=== PATIENT | female | born 1960 | race Caucasian/White ===

== ENCOUNTER 2017-07-18 15:56 | Outpatient (RCR) | payer BC, SELFPAY | END 2017-08-02 23:59 | LOC: NS 15:56 | PROVIDERS: Family Provider Family Medicine; PCP Internal Medicine; Visit Provider Internal Medicine | DX: E11.9 Type 2 diabetes mellitus without complications (principal); E66.9 Obesity, unspecified; Z68.36 Body mass index [BMI] 36.0-36.9, adult; Z71.3 Dietary counseling and surveillance | CPT/HCPCS: 97803 ==

== ENCOUNTER 2017-08-16 07:39 | Day surgery (SDC) | payer BC, SELFPAY ==
--- NOTE | 2017-08-16 | COLBX_PTH ---
PATIENT: ROSIO ELDRIDGE LOC: [facility] U#:[id number] AGE/SX: 57/F ROOM: RE08/16/[address]: Dr. Pennie Duarte MD : 1960 BED: DIS: 08/16/2017 SPEC #: [id number] RECD: 08/16/17 13:41 STATUS: MADIE ANT #: [id number] CHRISTAL: 08/16/17 00:[address]: Pennie Duarte DEPT: SURGICAL PATHOLOGY RECD BY: Vance Yanez ENTERED: 08/16/17 13:41 SP TYPE: COLON BX OTHR DR: MD Dr. Dimitry Roque MD Tissues: A - Cecum, NOS B - Rectum, NOS Procedures: Surgery Specimen Level IV HEADER OPERATION: Colonoscopy with biopsy PRE-OP DIAGNOSIS: Screening, history cecum polyp TISSUE SUBMITTED: A ? Cecum polyp biopsy, B ? Rectal polyp biopsy MICROSCOPIC DIAGNOSIS A. Cecum polyp, biopsy: Fragments of colonic mucosa, no pathologic diagnosis. B. Rectal polyp, biopsy: Fragments of tubular adenoma. SJ:maci 08/17/17 MICROSCOPIC DESCRIPTION Slides are reviewed. GROSS DESCRIPTION A - Received in fixative is one container labeled with the patient's name and designated cecal polyp biopsy. The specimen consists of two irregular fragments of light river soft tissue that in aggregate measure 0.5 x 0.3 x 0.1 cm. The specimen is totally submitted in one cassette. B - Received in fixative is one container labeled with the patient's name and designated rectal polyp biopsy. The specimen consists of multiple irregular fragments of light river soft tissue that in aggregate measure 1 x 0.6 x 0.2 cm. The specimen is totally submitted in one cassette. / AM:maci 08/16/17 TC:1 [facility]: [id number] x2
[2017-08-16 08:06] VITALS: BP 125/64; PULSE 75; RESP 16; TEMP 36.6; O2SAT 97; BMI 35.1
[2017-08-16 08:36] LABS: Bedside Glucose 183 mg/dL (70-110)
[2017-08-16 09:35] VITALS: BP 125/64; BP 93/45; PULSE 72; RESP 16; TEMP 36.3; O2SAT 96
[2017-08-16 09:40] VITALS: BP 112/49; BP 125/64; PULSE 75; RESP 16; O2SAT 97
--- NOTE | 2017-08-16 09:44 | PCM.OPRPT ---
Report of Operation Date of Procedure: 08/16/17 Pre-Operative Diagnosis: Screening for colon cancer, history of polyps Post-Operative Diagnosis: Cecal polyp, rectal polyp, moderate diverticulosis throughout her colon Surgery/Procedure Performed:: Colonoscopy with biopsy Type of Anesthesia:: MAC Anesthesiologist: Kyle Schmidt Specimen's removed: 1. Cecal polyp, 2. Rectal polyp Estimated Blood Loss (mL): Minimal Description of Procedure: Procedure: Colonoscopy After reviewing the risks benefits, the patient was deemed in satisfactory condition to undergo procedure. After obtaining informed consent, the scope was passed under direct visualization. Throughout the procedure, the patient's blood pressure pulse and position saturations were monitored continuously anesthesia. The colonoscope was introduced through the anus and advanced to the cecum, identified by the appendiceal orifice, IC valve and transillumination. The colonoscopy was performed without difficulty. The patient tolerated procedure well. Quality of bowel prep was good. Findings: The perianal and digital rectal exam were normal. Small polyps were removed with the cold forceps biopsy in the cecum as well as in the rectum and sent to histology. There was moderate diverticulosis throughout the colon. Otherwise the colon (entire examined portion) appeared normal. Retroflexed view of the distal rectum and anal verge showed a rectal polyp which was removed with cold forceps biopsies. Impression: 1. Cecal and rectal polyp. Biopsied 2. Diverticulosis-moderate- throughout her colon 3. The distal rectal and anal verge were normal on retroflexed view. Recommendations: High-fiber diet await Biopsies Repeat colonoscopy in 3-5 years for screening purposes pending on biopsies - Complications none
[2017-08-16 09:45] VITALS: BP 110/52; BP 125/64; PULSE 72; RESP 16; O2SAT 97
[2017-08-16 09:50] VITALS: BP 119/58; BP 125/64; PULSE 70; RESP 16; TEMP 36.1; O2SAT 99
[2017-08-16 10:11] VITALS: BP 125/64
== END 2017-08-16 10:12 | disposition home or self-care (01) ==
LOC: EN 07:40 → AC 07:41
PROVIDERS: Family Provider Family Medicine; PCP Internal Medicine; Visit Provider Surgery
PROC: 0DJD8ZZ Inspection of Lower Intestinal Tract, Via Natural or Artificial Opening Endoscopic (ICD-10-PCS; CPT 45378; principal; 2017-08-16 08:55)
DX: Z12.11 Encounter for screening for malignant neoplasm of colon (principal); K63.5 Polyp of colon; D12.8 Benign neoplasm of rectum; K57.30 Diverticulosis of large intestine without perforation or abscess without bleeding; E11.9 Type 2 diabetes mellitus without complications; G50.0 Trigeminal neuralgia; E78.00 Pure hypercholesterolemia, unspecified; K21.9 Gastro-esophageal reflux disease without esophagitis; I10 Essential (primary) hypertension; Z78.0 Asymptomatic menopausal state; Z86.010 Personal history of colon polyps; Z90.49 Acquired absence of other specified parts of digestive tract; Z87.891 Personal history of nicotine dependence; Z79.84 Long term (current) use of oral hypoglycemic drugs; Z79.899 Other long term (current) drug therapy
CPT/HCPCS: 45380; 82962; 88305; J7120

== ENCOUNTER 2017-08-21 15:30 | Outpatient (RCR) | payer BC, SELFPAY ==
[2017-07-27 14:04] VITALS: BP 117/77; BMI 35.2
== END 2017-08-30 23:59 ==
LOC: NS 15:30
PROVIDERS: Family Provider Family Medicine; PCP Internal Medicine; Visit Provider Internal Medicine
DX: E11.9 Type 2 diabetes mellitus without complications (principal); E66.9 Obesity, unspecified; Z68.36 Body mass index [BMI] 36.0-36.9, adult; Z71.3 Dietary counseling and surveillance
CPT/HCPCS: 97803

== ENCOUNTER → 2018-02-12 09:42 | Outpatient (CLI) | payer BC, SELFPAY ==
[2018-02-12 11:27] LABS: Hemoglobin A1c 9.3 % (4.2-6.3)
[2018-02-12 11:37] LABS: Microalbumin,Random Urine 29.3 mg/L (NO RANGE EST.); Microalbumin:Creatinine Ratio 18.7 mg/g CRE (<30 mg/g CRE)
[2018-02-12 11:51] LABS: ALB/GLOB Ratio 1.1 RATIO (0.9-2.4); AST(SGOT) 46 U/L (15-37); Alanine Aminotransfer ALT/SGPT 78 U/L (13-56); Albumin, Serum 3.6 g/dL (3.2-5.0); Alkaline Phosphatase 131 U/L (45-117); Anion Gap 14 (5-15); BUN 13 mg/dL (7-18); BUN/Creat Ratio 19.3 RATIO (10-20); Chloride 102 mmol/L (98-107); Cholesterol 133 mg/dL (200); Creatinine, Serum 0.68 mg/dL (0.55-1.02); EST Glomerular Filtration Rate 95 mL/min (>60); Est Glom Filt Rate - Afr Amer 115 mL/min (>60); Globulin 3.4 g/dL (2.2-4.2); Glucose 191 mg/dL (74-106); High Density Lipoprotein 44 mg/dL; Potassium 4.3 mmol/L (3.5-5.1); Sodium Level 139 mmol/L (136-145); Triglycerides 174 mg/dL; Very Low Density Lipoprotein 35 mg/dL (5-40)
== END ==
PROVIDERS: Nurse Practitioner; Family Provider Internal Medicine; PCP Internal Medicine; Visit Provider Obstetrics & Gynecology
DX: E11.9 Type 2 diabetes mellitus without complications (principal); E78.5 Hyperlipidemia, unspecified; Z12.31 Encounter for screening mammogram for malignant neoplasm of breast
CPT/HCPCS: 36415; 77063; 77067; 80053; 80061; 82043; 82570; 83036

== ENCOUNTER 2018-03-21 13:30 | Outpatient (RCR) | payer BC, SELFPAY ==
--- NOTE | 2018-03-21 13:55 | HP.PTDCSUM ---
HP - PT D/C Summary It has been my pleasure to treat ROSIO ELDRIDGE under orders from Sharda Anderson MD, for the diagnosis of vertigo for a total of 2 visit(s). Discharge Date: 03/21/18 Please see the following information for a summary of their discharge status. - Subjective Subjective: No dizziness at all since last time, Pt reports that she almost cancelled. She can roll to both sides without dizziness. Pt is feeling a sense of off balance. - Overall Improvement % Improvement: 100 - Objective Objective/Function: - B hallpike tests. FGA . horizontal and vertical pursuits and saccades (tracked normally and no dizziness) - Goals Goal 1:: I HEP Goal Progress: Goal Met Goal 2:: Help dizziness by 50% Goal Progress: Goal Met Goal 3:: Aboolish dizziness when roll to the L side Goal Progress: Goal Met - Plan Plan: DC PT at this time. Pt will start Dias -DaROFF EXERCIES IF HER SYMPTOMS COME BACK. SHE WILL ALSO START AT THE KITCHEN COUNTER HEEL AND TOE RAISES - D/C Information Discharge Comments: DC PT If there are questions or concerns regarding this patient's physical therapy, please feel free to call me at [phone]. Thank you for the referral of this patient. Sincerely, Laura Cohen
--- NOTE | 2018-03-21 18:22 | HP.PTEVAL ---
Patient's Visit Information ROSIO ELDRIDGE is a 57 year old F referred to Physical Therapy by Sharda Anderson MD with a diagnosis of vertigo. Date of Evaluation: 03/13/18 Physical Therapist: Laura Cohen - Visit Plan Duration: 4 Weeks Plan: DC PT at this time. Pt will start Dias -DaROFF EXERCIES IF HER SYMPTOMS COME BACK. SHE WILL ALSO START AT THE KITCHEN COUNTER HEEL AND TOE RAISES - Subjective Subjective: Pt was diagnosed with vertigo 8 years ago. Last 2-3 months when the pt goes to lay down she gets dizzy especially when lay on the L side and does not last long. Pt was diagnosed with vertigo years ago. Pt has a new boss and does not have an excuse...cause she gets dizzy when up on the stool. wrote her an excuse and asked her if she will go to PT. Standing up quick or over to the side ( mainly L) gets dizzy, bending over. When she rolls over on the L side she feels that she is spinning. There are times that she does not feel good during the day and it is almost like a motion sickness. Her vertigo has never got to the point of vomiting etc. She has done some manuveurs at home and have helped some but the rolling to the L is something new. She has lived with the vertigo but this rolling to the L seems worse. Pt has fallen but due to leg cramps. Pt also has trigeminal neuralgia as well. Pt works in an office with computer junior database administrator. Pt does not have good balance. - Objective -Hallpike to B ( at first pt felt slight dizziness getting into hallpike position B but subsided without nystagmus or any increase in dizziness). Roll test- + B for nystagmus that did not rest until out of position. - Balance Scores Functional Gait Assessment Score: 27 % Disability: 10.0000 - Goals Goal 1:: I HEP Goal Time Frame: 4-6 Weeks Goal 2:: Help dizziness by 50% Goal Time Frame: 4-6 Weeks Goal 3:: Aboolish dizziness when roll to the L side Goal Time Frame: 4-6 Weeks - Rehabilitation Potential Rehabilitation Potential: Good - Anticipated Interventions Patient/Client Instruction: Educate patient on: Plan of Care For the Purpose of:: To improve performance and independence with ADL's, To improve gait and locomotor functions, To improve balance Therapeutic Exercise to Include: Balance training, Gait and locomotor training, Neuromotor development For the Purpose of:: To improve ability of physical actions for home/community/work/leisure, To improve gait and locomotor functions, To improve endurance, To improve balance Manual Therapy Techniques to Include: Other Comment: EPLY and other manuvers For the Purpose of:: To improve balance Thank you for the opportunity to evaluate your patient. For Medicare and Medicare HMO plans, please review the plan of care and approve it. It will need to be FAXED BACK to us at [phone] for Medicare purposes. Please let me know if there are questions or concerns regarding this plan of care. Physician Signature: Date:
== END 2018-03-21 19:00 | disposition home or self-care (01) ==
LOC: PT 13:30
PROVIDERS: Family Provider Internal Medicine; PCP Internal Medicine; Visit Provider Internal Medicine
DX: R42 Dizziness and giddiness (principal)
CPT/HCPCS: 97161; 97530

== ENCOUNTER → 2018-09-10 09:53 | Outpatient (CLI) | payer BC, SELFPAY ==
[2018-09-10 09:38] VITALS: BMI 38.0
[2018-09-10 09:55] LABS: Bacteria 0 SEEN /hpf (None Seen); Mucous, Urine 0 SEEN /hpf (<or=2+); Red Blood Cells-Urine 0 SEEN /hpf (0-5); White Blood Cells 0 SEEN /hpf (0-5)
[2018-09-10 12:55] LABS: Color, Urine Yellow (Yellow); Glucose, Dipstick 100 mg/dl (Normal); Ketone-Dipstick Negative (Negative); Leukocyte Esterase-Dipstick Negative /ul (Negative); Nitrite-Dipstick Negative (Negative); Occult Blood-Urine Negative /ul (Negative); Protein-Dipstick 30 mg/dl (Negative); Specific Gravity, Urine 1.015 (1.002-1.030); Urine Bilirubin Dipstick Negative (Negative); Urine Clarity Sl. Cloudy (Clear); Urine Urobilinogen Normal (Normal)
[2018-09-10 13:01] LABS: Squamous Epithelial Cells - UA 0-5 SEEN /hpf (5-10)
[2018-09-10 13:10] LABS: Anion Gap 8 (5-15); BUN 9 mg/dL (7-18); BUN/Creat Ratio 13.9 RATIO (10-20); Calcium,Total 9.3 mg/dL (8.5-10.1); Chloride 102 mmol/L (98-107); Creatinine, Serum 0.65 mg/dL (0.55-1.02); EST Glomerular Filtration Rate 100 mL/min (>60); Est Glom Filt Rate - Afr Amer 121 mL/min (>60); Glucose 206 mg/dL (74-106); Potassium 4.2 mmol/L (3.5-5.1); Sodium Level 135 mmol/L (136-145)
[2018-09-10 13:18] LABS: Hemoglobin A1c 9.6 % (4.2-6.3)
== END ==
PROVIDERS: Family Provider Internal Medicine; PCP Internal Medicine; Visit Provider Internal Medicine
DX: E11.9 Type 2 diabetes mellitus without complications (principal); R10.9 Unspecified abdominal pain
CPT/HCPCS: 36415; 80048; 81001; 83036

== ENCOUNTER → 2018-10-10 | Outpatient (CLI) | payer BC, SELFPAY ==
[2018-10-10 10:40] VITALS: BMI 38.0
== END | disposition home or self-care (01) ==
LOC: LABSPEC 16:44
PROVIDERS: Family Provider Internal Medicine; PCP Internal Medicine; Referring Provider Nurse Practitioner Women's Health; Visit Provider Nurse Practitioner Women's Health
DX: B37.3 Candidiasis of vulva and vagina (principal)
CPT/HCPCS: 87070; 87205

== ENCOUNTER → 2019-02-04 | Outpatient (CLI) | payer BC, SELFPAY ==
[2018-10-15 13:10] VITALS: BMI 38.0
[2019-02-04 10:04] LABS: Hemoglobin A1c 9.3 % (4.2-6.3)
== END | disposition home or self-care (01) ==
LOC: LAB 08:26
PROVIDERS: Family Provider Internal Medicine; PCP Internal Medicine; Referring Provider Internal Medicine; Visit Provider Internal Medicine
DX: E11.9 Type 2 diabetes mellitus without complications (principal)
CPT/HCPCS: 36415; 83036

== ENCOUNTER → 2019-03-21 | Outpatient (CLI) | payer BC, SELFPAY ==
[2019-02-26 11:02] VITALS: BMI 38.0
[2019-03-21 12:14] LABS: Absolute Lymphocyte Count 2.24 X10^3/uL (0.83-4.51); Absolute Neutrophil Count 4.6 X10^3/uL (2.0-7.7); Basophil# 0.03 X10^3/uL; Basophil% 0.4 % (0-1); Eosinophil# 0.34 X10^3/uL; Eosinophils% 4.3 % (0-5); Hematocrit 39.5 % (37-47); Hemoglobin 12.4 g/dL (12.0-15.0); Lymphocyte # 2.24 X10^3/ul (4.0); Lymphocyte % 28.1 % (19-41); Mean Corp Hgb Conc 31.4 g/dL (32-36); Mean Corpuscular Hgb 26.2 pg (27.0-32.0); Mean Corpuscular Volume 83.3 fL (81-99); Mean Platelet Vol. 10.9 fl (6.2-12.0); Monocyte# 0.71 X10^3/uL; Monocyte% 8.9 % (0-10); NRBC Flagged by Analyzer 0 % (0-5); Neutrophil # 4.61 X10^3/uL (2.7-7.7); Neutrophil % 57.9 % (47-70); Platelet Count 226 K/mm3 (150-450); RBC Distribution Width CV 13.8 % (11.6-14.6); Red Blood Count 4.74 M/mm3 (4.2-5.4)
[2019-03-21 12:40] LABS: AST(SGOT) 103 U/L (15-37); Alanine Aminotransfer ALT/SGPT 116 U/L (13-56); Albumin, Serum 3.6 g/dL (3.2-5.0); Alkaline Phosphatase 127 U/L (45-117); Anion Gap 7 (5-15); BUN 10 mg/dL (7-18); BUN/Creat Ratio 15.9 RATIO (10-20); Calcium,Total 9.4 mg/dL (8.5-10.1); Chloride 105 mmol/L (98-107); Cholesterol 133 mg/dL (200); Creatinine, Serum 0.63 mg/dL (0.55-1.02); EST Glomerular Filtration Rate 103 mL/min (>60); Est Glom Filt Rate - Afr Amer 125 mL/min (>60); Globulin 3.7 g/dL (2.2-4.2); Glucose 168 mg/dL (74-106); High Density Lipoprotein 38 mg/dL; Potassium 4.4 mmol/L (3.5-5.1); Protein, Total 7.3 g/dL (6.4-8.2); Sodium Level 137 mmol/L (136-145); Triglycerides 188 mg/dL; Very Low Density Lipoprotein 38 mg/dL (5-40)
== END | disposition home or self-care (01) ==
LOC: BIMLAB 11:13
PROVIDERS: Family Provider Internal Medicine; PCP Internal Medicine; Visit Provider Internal Medicine
DX: E11.9 Type 2 diabetes mellitus without complications (principal); E78.5 Hyperlipidemia, unspecified
CPT/HCPCS: 36415; 80053; 80061; 85025

== ENCOUNTER → 2019-03-23 | Outpatient (CLI) | payer BC, SELFPAY ==
[2019-02-26 11:02] VITALS: BMI 38.0
--- NOTE | 2019-03-23 09:54 | BI_ITS ---
MAMMOGRAPHY - BILATERAL SCREENING REASON FOR EXAM: Female, 58 years old. Routine annual screening examination. PERTINENT HISTORY: Sister with breast cancer. TECHNIQUE: Digital bilateral breast zachary (3D mammographic acquisition) in the CC and MLO projections. 2-D mediolateral oblique (MLO) and craniocaudad (CC) views of both breasts were obtained. CAD: Full Field Digital Mammography with Computer Added Detection was performed. COMPARISON: Comparison is made with prior study dated February 12, 2018 and November 29, 2012. FINDINGS: Breast Composition: There are scattered areas of fibroglandular density. There are no dominant masses or suspicious calcifications. Stable appearance of the benign appearing bilateral axillary lymph nodes. No other significant abnormalities are identified. There has been no significant change since the prior study. BI/SCREEN MAMM (CAD) W/ZACHARY BILAT IMPRESSION: Stable bilateral screening mammogram. Yearly follow-up mammogram recommended. (A) ASSESSMENT CATEGORY: BIRADS Category 2: Benign. A letter regarding these results will be sent to the patient by the facility within 30 days. Approximately 10% of breast cancers are not detected by mammography. A normal mammogram should not delay biopsy of a clinically suspicious abnormality. [id number] Electronically Signed: Chris Villalpando, at 8:37 EDT , Service support ,
== END | disposition home or self-care (01) ==
LOC: OPBI 09:52
PROVIDERS: Family Provider Internal Medicine; PCP Internal Medicine; Referring Provider Internal Medicine; Visit Provider Internal Medicine
DX: Z12.31 Encounter for screening mammogram for malignant neoplasm of breast (principal)
CPT/HCPCS: 77063; 77067

== ENCOUNTER → 2019-03-25 | Outpatient (CLI) | payer BC, SELFPAY ==
[2019-02-26 11:02] VITALS: BMI 38.0
--- NOTE | 2019-03-25 11:29 | EKG12_ITS ---
Test Reason : Blood Pressure : / mmHG Vent. Rate : 085 BPM Atrial Rate : 085 BPM P-R Int : 124 ms QRS Dur : 072 ms QT Int : 372 ms P-R-T Axes : 001 037 042 degrees QTc Int : 442 ms Normal sinus rhythm Normal ECG Confirmed by IRAM SPAIN, DEBBIE ([id number]), supervising editor news reel ERIC GUTIERREZ ([id number]) on 03/27/2019 10:40:00 AM Referred By: Sharda Anderson Confirmed By:DEBBIE WALDEN MD
== END | disposition home or self-care (01) ==
LOC: PSN 11:28
PROVIDERS: Family Provider Internal Medicine; PCP Internal Medicine; Referring Provider Internal Medicine; Visit Provider Internal Medicine
DX: E11.9 Type 2 diabetes mellitus without complications (principal); I10 Essential (primary) hypertension
CPT/HCPCS: 93005

== ENCOUNTER → 2019-03-29 | Outpatient (CLI) | payer BC, SELFPAY ==
[2019-02-26 11:02] VITALS: BMI 38.0
--- NOTE | 2019-03-29 09:22 | US_ITS ---
STUDY: ABDOMINAL ULTRASOUND - RIGHT UPPER QUADRANT REASON FOR VISIT: Female, 58 years old elevated LFTs. History of fatty liver. TECHNIQUE: Ultrasound evaluation of the right upper quadrant was performed with real-time and static erwin-scale imaging. TECHNICAL QUALITY: Adequate. COMPARISON: Gallbladder ultrasound 02/20/2017. CT abdomen and pelvis without contrast 10/22/2016. FINDINGS: Liver: The liver measures 22.4 cm. Increase echogenicity of the liver parenchyma due to fatty infiltration. The bile ducts are within normal limits. There is hepatic color flow. The direction of portal flow is hepatopetal. There is no demonstrated mass lesion. Gallbladder: Postsurgical absence. Common Bile Duct (C.B.D.): The common bile duct measures 5 mm. Pancreas: Normal size of the head and body. The tail of pancreas is difficult to visualize due to obesity. There is normal echogenicity of the pancreas. There is no demonstrated pancreatic mass or cyst. The pancreatic duct is not dilated. Right Kidney: Normal size of the right kidney. The right kidney measures 12.6 x 5.4 x 5.2 cm. Normal renal cortex. The right cortex measures 1.6 cm. There is no demonstrated renal mass or cyst. There is no right hydronephrosis. US/Abdomen Limited IMPRESSION: 1. Diffuse hepatic steatosis. 2. Interval cholecystectomy. 3. No suspicious mass or acute abnormality in the right upper quadrant of the abdomen. Electronically Signed: Elbert Back MD at 11:22 EDT , Service support ,
== END | disposition home or self-care (01) ==
PROVIDERS: Family Provider Internal Medicine; PCP Internal Medicine; Referring Provider Internal Medicine; Visit Provider Internal Medicine
DX: K76.0 Fatty (change of) liver, not elsewhere classified (principal); R74.8 Abnormal levels of other serum enzymes
CPT/HCPCS: 76705

== ENCOUNTER → 2019-06-19 07:37 | Outpatient (CLI) | payer BC, SELFPAY ==
[2019-06-19 06:31] VITALS: BMI 36.7
--- NOTE | 2019-06-19 07:38 | RAD_ITS ---
STUDY: X-RAY CHEST REASON FOR EXAM: Female, 58 years old. Cough and fever TECHNIQUE: PA and lateral views of the chest. COMPARISON: 02/22/2017 FINDINGS: The lungs are clear and expanded. There is no demonstrated pleural abnormality. Normal size heart. Normal mediastinum and kiko. Normal visualized pulmonary arteries. Normal visualized aortic arch and descending thoracic aorta. Normal visualized thoracic spine. Normal visualized ribs, clavicles, and shoulders. There is no demonstrated abnormality of the visualized soft tissue structures of the upper abdomen. RAD/Chest PA and Lateral IMPRESSION: Normal x-ray examination of the chest. Electronically Signed: Capo Valenzuela DO at 8:10 EST Tel , Service support ,
== END ==
PROVIDERS: Family Provider Internal Medicine; PCP Internal Medicine; Referring Provider Physician Assistant; Visit Provider Physician Assistant
DX: R05 Cough (principal)
CPT/HCPCS: 71046

== ENCOUNTER → 2019-08-28 11:49 | Outpatient (CLI) | payer BC, SELFPAY ==
[2019-08-12 16:46] VITALS: BMI 36.7
[2019-08-28 12:56] LABS: AST(SGOT) 32 U/L (15-37); Alanine Aminotransfer ALT/SGPT 55 U/L (13-56); Albumin, Serum 3.8 g/dL (3.2-5.0); Alkaline Phosphatase 134 U/L (45-117); Anion Gap 7 (5-15); BUN 16 mg/dL (7-18); Calcium,Total 9.9 mg/dL (8.5-10.1); Chloride 106 mmol/L (98-107); Creatinine, Serum 0.73 mg/dL (0.55-1.02); EST Glomerular Filtration Rate 87 mL/min (>60); Est Glom Filt Rate - Afr Amer 106 mL/min (>60); Globulin 3.8 g/dL (2.2-4.2); Glucose 128 mg/dL (74-106); Potassium 4.6 mmol/L (3.5-5.1); Protein, Total 7.6 g/dL (6.4-8.2); Sodium Level 136 mmol/L (136-145)
[2019-08-28 13:40] LABS: Microalbumin,Random Urine 20.7 mg/L (NO RANGE EST.); Microalbumin:Creatinine Ratio 22.2 mg/g CRE (<30 mg/g CRE)
== END ==
PROVIDERS: PCP Internal Medicine; Referring Provider Internal Medicine; Visit Provider Internal Medicine
DX: E11.9 Type 2 diabetes mellitus without complications (principal); I10 Essential (primary) hypertension
CPT/HCPCS: 36415; 80053; 82043; 82570

== ENCOUNTER 2019-09-06 16:00 | Outpatient (RCR) | payer BC, SELFPAY ==
[2019-08-12 16:46] VITALS: BMI 36.7
--- NOTE | 2019-08-15 13:21 | HP.PTEVAL_ITS ---
Patient's Visit Information ROSIO ELDRIDGE is a 59 year old F referred to Physical Therapy by Sharda Anderson MD with a diagnosis of LESION OF LEFT SCIATIC NERVE. Date of Evaluation: 08/15/19 Physical Therapist: Janneth Campbell PT, Cert MDT - Visit Plan Frequency: 2-3x /Week Duration: 4-6 Weeks Plan: US, E-STIM WITH MH, POSTURE CORRECTION/STRENGTHENING, INSTRUCTION IN APPROPRIATE BODY MECHANICS AND ACTIVITY MODIFICATIONS. DLS STARTING WITH A NEUTRAL SPINE PROGRESSING ROM TOLERATED. EITAN LE ROM, STRETCHING AND STRENGTHENING. HEP INSTRUCTION. 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 Disability: NO. Present symptoms: LEFT LOW BACK, LEFT BUTTOCK, LEFT THIGH AND LEFT LEG TO ANKLE. NO FOOT OR TOE SX'S. LLE SX WAS JUST PAIN UNTIL RECENTLY AND NOW THERE IS MILD NUMBNESS AND TINLGING TOO. IN THE LAST COUPLE OF WEEKS THE RIGHT BUTTOCK HAS STARTED TO HURT TOO. Present since: BEGINNING OF JUL 2019. Pain Scale: WORST 7/10, LEAST 1/10. Currently: 08/12. Commenced as a result of: DX'D WITH PNEUMONIA JUN 19 2019 AND SAT AROUND A LOT. OFF WORK 5 DAYS. SX'S STARTED SOON AFTER. Symptoms at onset: LEFT BUTTOCK. Worse: SITTING, STANDING. Better: IBUPROFEN, PAIN PILL. Disturbed sleep: YES. Previous history/Previous treatment: UNREMARKABLE. Treatment this episode: PAIN MEDICINE. HOME EX'S FOUND ON THE INTERNET - TEMPORARY RELIEF BUT IT KEPT COMING BACK AND GETTING WORSE. PATIENT DESCRIBING HOME PIRIFORMIS STRETCHING. Coughing/sneezing/straining: NEGATIVE. Gait: NORMAL. Difficulty initiating urinatin: NO. Accidents: NO. Unexplained weight loss: NO. Imaging: NONE - Objective Sitting/Standing Posture: POOR. Lordosis: REDUCED. Lateral shift: NO. Relevant shift: N/A. Active Correction of posture: BETTER. Other Observation s: INDEP GAIT INTO PT WITH NO GROSS DEVICATIONS NOTED. INDEP TRANSFER SIT TO STAND WITHOUT UE ASSSIT. Motor deficit: EITAN LE'S 5/5 WITH MMT'ING. Sensory deficit: NO. ROM deficit: EITAN LE'S WFL. Reflexes: NT. Dural Signs: POSITIVE LLE. Lumbar mvmt loss: flex - MIN. ext - MOD. R SG - MIN. L SG - MIN. Core strength: POOR. Palpation: NO ACUTE LUMBOSACRAL OR HIP TENDERNESS WITH PALPATION. NO ACUTE BUTTOCK TENDERNESS EITAN. TREATMENT: NEUROMUSCULAR REEDUCATION - RETRAINING OF MVMT AND POSTURE FOR SITTING, LYING AND STANDING ACTIVITIES. US AT 1.5 W/CM2 X 8 MIN TO EITAN LOW BACK AREA WITH PATIENT IN RIGHT SDLY. - Goals Goal 1:: DECREASE C/O LOW BACK AND EITAN LE SX'S Goal Time Frame: 4-6 Weeks Goal 2:: IMPROVE SITTING, STANDING, SLEEP, SOCIAL LIFE, TRAVEL AND HOMEMAKING FUNCITON. Goal Time Frame: 4-6 Weeks Goal 3:: INSTRUCT IN PROPHYLAXIS Goal Time Frame: 4-6 Weeks - Rehabilitation Potential Rehabilitation Potential: Good - Anticipated Interventions Patient/Client Instruction: Educate patient on: Condition, Plan of Care, Risk Factors, Benefits of Fitness Program For the Purpose of:: To improve self management Therapeutic Exercise to Include: Strength training, Body mechanics, Postural training, Flexibilty training, Neuromotor development, Dynamic Lumbar Stabilization For the Purpose of:: To decrease pain, To increase ROM, To improve muscle performance and motor function, To increase tolerance to activity/condition/position, To improve ability of physical actions for home/community/work/leisure TENS: Yes IF ES: Yes Cryotherapy (ice pack, ice massage): Yes Thermo therapy (hot pack): Yes Ultrasound (thermal/non thermal): Yes For the Purpose of:: To decrease pain, To decrease swelling/inflammation, To improve nutrient delivery to tissue Thank you for the opportunity to evaluate your patient. For Medicare and Medicare HMO plans, please review the plan of care and approve it. It will need to be FAXED BACK to us at [phone] for Medicare purposes. For Medicare only, by signing this I certify the plan of care. Please let me know if there are questions or concerns regarding this plan of care. Physician Signature: Date:
== END 2019-09-06 17:00 | disposition home or self-care (01) ==
LOC: PT 16:00
PROVIDERS: PCP Internal Medicine; Referring Provider Internal Medicine; Visit Provider Internal Medicine
DX: G57.02 Lesion of sciatic nerve, left lower limb (principal)
CPT/HCPCS: 97035; 97110; 97112; 97162; 97530

== ENCOUNTER → 2020-05-11 17:36 | Outpatient (CLI) | payer BC, SELFPAY | PROVIDERS: PCP Internal Medicine; Referring Provider Internal Medicine; Visit Provider Internal Medicine | DX: Z20.828 Contact with and (suspected) exposure to other viral communicable diseases (principal) | CPT/HCPCS: 87635; C9803; U0003 ==

== ENCOUNTER → 2020-07-31 | Outpatient (CLI) | payer BC, SELFPAY ==
[2020-07-08 16:41] VITALS: BMI 34.9
== END | disposition home or self-care (01) ==
LOC: LABSPEC 14:05
PROVIDERS: PCP Internal Medicine; Referring Provider Nurse Practitioner Family; Visit Provider Nurse Practitioner Family
DX: R68.89 Other general symptoms and signs (principal)
CPT/HCPCS: 87635; U0005; U0003

== ENCOUNTER → 2020-08-31 15:41 | Outpatient (CLI) | payer BC, SELFPAY ==
[2020-07-08 16:41] VITALS: BMI 34.9
[2020-08-31 18:13] LABS: AST(SGOT) 25 U/L (15-37); Alanine Aminotransfer ALT/SGPT 46 U/L (13-56); Albumin, Serum 3.7 g/dL (3.2-5.0); Alkaline Phosphatase 135 U/L (45-117); Bilirubin, Direct 0.13 mg/dL (0.00-0.30); CRP < 2.90 mg/L (0.0-3.0); GGTP 24 U/L (5-55); Globulin 3.6 g/dL (2.2-4.2); Protein, Total 7.3 g/dL (6.4-8.2)
[2020-09-02 20:08] LABS: Endomysial Antibody IgA Negative (Negative)
[2020-09-02 20:56] LABS: ANTINUCLEAR ANTIBODIES DIRECT Negative (Negative); Anti-Mitochondrial AB <20.0 Units (0.0-20.0)
[2020-09-02 21:01] LABS: Immunoglobulin A 155 mg/dL (87-352); t-Transglutaminase IgA <2 U/mL (0-3)
== END ==
PROVIDERS: PCP Internal Medicine; Referring Provider Internal Medicine Gastroenterology; Visit Provider Internal Medicine Gastroenterology
DX: R19.7 Diarrhea, unspecified (principal)
CPT/HCPCS: 36415; 80076; 82784; 82977; 83516; 86038; 86140; 86255

== ENCOUNTER → 2020-10-14 08:11 | Outpatient (CLI) | payer BC, SELFPAY ==
[2020-07-08 16:41] VITALS: BMI 34.9
[2020-10-14 12:47] LABS: Absolute Lymphocyte Count 2.48 X10^3/uL (0.83-4.51); Absolute Neutrophil Count 4.8 X10^3/uL (2.0-7.7); Basophil# 0.03 X10^3/uL; Basophil% 0.4 % (0-1); Eosinophils% 4.7 % (0-5); Hematocrit 43.1 % (37-47); Hemoglobin 13.3 g/dL (12.0-15.0); Lymphocyte # 2.48 X10^3/ul (0.83-4.51); Lymphocyte % 29.1 % (19-41); Mean Corp Hgb Conc 30.9 g/dL (32-36); Mean Corpuscular Hgb 26.7 pg (27.0-32.0); Mean Corpuscular Volume 86.5 fL (81-99); Mean Platelet Vol. 11.2 fl (6.2-12.0); Monocyte# 0.76 X10^3/uL; Monocyte% 8.9 % (0-10); NRBC Flagged by Analyzer 0 % (0-5); Neutrophil # 4.84 X10^3/uL (2.7-7.7); Neutrophil % 56.7 % (47-70); Platelet Count 262 K/mm3 (150-450); RBC Distribution Width CV 13.6 % (11.6-14.6); RBC Distribution Width SD 42.7 fl (35.1-43.9); Red Blood Count 4.98 M/mm3 (4.2-5.4); White Blood Count 8.5 K/mm3 (4.4-11.0)
[2020-10-14 13:01] LABS: Vitamin B12 617 pg/mL (211-911)
[2020-10-14 13:10] LABS: ALB/GLOB Ratio 1.1 RATIO (0.9-2.4); AST(SGOT) 22 U/L (15-37); Alanine Aminotransfer ALT/SGPT 44 U/L (13-56); Albumin, Serum 3.9 g/dL (3.2-5.0); Alkaline Phosphatase 127 U/L (45-117); Anion Gap 7 (5-15); BUN 17 mg/dL (7-18); BUN/Creat Ratio 24.7 RATIO (10-20); Calcium,Total 9.6 mg/dL (8.5-10.1); Chloride 104 mmol/L (98-107); Cholesterol 135 mg/dL (200); Creatinine, Serum 0.69 mg/dL (0.55-1.02); EST Glomerular Filtration Rate 92 mL/min (>60); Est Glom Filt Rate - Afr Amer 112 mL/min (>60); Globulin 3.6 g/dL (2.2-4.2); Glucose 194 mg/dL (74-106); High Density Lipoprotein 45 mg/dL; Potassium 4.5 mmol/L (3.5-5.1); Protein, Total 7.5 g/dL (6.4-8.2); Sodium Level 136 mmol/L (136-145); Triglycerides 158 mg/dL; Very Low Density Lipoprotein 32 mg/dL (5-40)
[2020-10-14 13:32] LABS: Hemoglobin A1c 8.1 % (3.8-5.6)
== END ==
PROVIDERS: PCP Internal Medicine; Referring Provider Internal Medicine; Visit Provider Internal Medicine
DX: E11.9 Type 2 diabetes mellitus without complications (principal); I10 Essential (primary) hypertension; E78.5 Hyperlipidemia, unspecified
CPT/HCPCS: 36415; 80053; 80061; 82607; 83036; 85025

== ENCOUNTER → 2020-11-02 10:25 | Outpatient (CLI) | payer BC, SELFPAY ==
[2020-07-08 16:41] VITALS: BMI 34.9
[2020-11-02 12:21] LABS: Absolute Eosinophil Count 0.35 X10^3/uL (0.0-0.23); Absolute Lymphocyte Count 2.36 X10^3/uL (0.83-4.51); Absolute Neutrophil Count 4.5 X10^3/uL (2.0-7.7); Basophil# 0.03 X10^3/uL; Basophil% 0.4 % (0-1); Eosinophil# 0.35 X10^3/uL; Eosinophils% 4.3 % (0-5); Hematocrit 40.9 % (37-47); Hemoglobin 12.9 g/dL (12.0-15.0); Lymphocyte # 2.36 X10^3/ul (0.83-4.51); Lymphocyte % 29.3 % (19-41); Mean Corp Hgb Conc 31.5 g/dL (32-36); Mean Corpuscular Hgb 26.7 pg (27.0-32.0); Mean Corpuscular Volume 84.5 fL (81-99); Mean Platelet Vol. 10.8 fl (6.2-12.0); Monocyte# 0.78 X10^3/uL; Monocyte% 9.7 % (0-10); NRBC Flagged by Analyzer 0 % (0-5); Neutrophil % 55.9 % (47-70); Platelet Count 249 K/mm3 (150-450); RBC Distribution Width CV 13.1 % (11.6-14.6); RBC Distribution Width SD 40.4 fl (35.1-43.9); Red Blood Count 4.84 M/mm3 (4.2-5.4); White Blood Count 8.1 K/mm3 (4.4-11.0)
== END ==
LOC: LABSPEC 10:27 → MTLAB 10:33
PROVIDERS: PCP Internal Medicine; Referring Provider Internal Medicine Gastroenterology; Visit Provider Internal Medicine Gastroenterology
DX: R19.7 Diarrhea, unspecified (principal)
CPT/HCPCS: 36415; 85025; 85048; 87177; 87209

== ENCOUNTER → 2021-02-05 09:16 | Outpatient (CLI) | payer BC, SELFPAY ==
[2021-01-25 08:55] VITALS: BMI 36.6
--- NOTE | 2021-02-05 09:47 | RAD_ITS ---
EXAM DESCRIPTION: PA and lateral chest CLINICAL HISTORY: 60 years Female, Chronic Cough Chronic Cough COMPARISON: 06/19/2019 FINDINGS: The thorax is intact. The heart and mediastinum appear to be within normal limits. The lungs appear to be well areated without evidence of pneumonic consolidation or pleural effusion. RAD/Chest PA and Lateral IMPRESSION: Normal chest. Electronically Signed: Dale Morris DO at 11:11 EDT Tel , Service support ,
[2021-02-05 11:57] LABS: Absolute Lymphocyte Count 1.75 X10^3/uL (0.83-4.51); Absolute Neutrophil Count 5.1 X10^3/uL (2.0-7.7); Basophil# 0.03 X10^3/uL; Basophil% 0.4 % (0-1); Eosinophil# 0.25 X10^3/uL; Eosinophils% 3.1 % (0-5); Hematocrit 41.2 % (37-47); Hemoglobin 12.9 g/dL (12.0-15.0); Lymphocyte # 1.75 X10^3/ul (0.83-4.51); Mean Corp Hgb Conc 31.3 g/dL (32-36); Mean Corpuscular Hgb 26.6 pg (27.0-32.0); Mean Corpuscular Volume 84.9 fL (81-99); Mean Platelet Vol. 10.9 fl (6.2-12.0); Monocyte# 0.75 X10^3/uL; Monocyte% 9.4 % (0-10); NRBC Flagged by Analyzer 0 % (0-5); Neutrophil # 5.14 X10^3/uL (2.7-7.7); Neutrophil % 64.6 % (47-70); Platelet Count 250 K/mm3 (150-450); RBC Distribution Width CV 14.2 % (11.6-14.6); RBC Distribution Width SD 43.8 fl (35.1-43.9); Red Blood Count 4.85 M/mm3 (4.2-5.4)
[2021-02-05 12:23] LABS: Anion Gap 8 (5-15); BUN 12 mg/dL (7-18); BUN/Creat Ratio 19.4 RATIO (10-20); Calcium,Total 9.7 mg/dL (8.5-10.1); Chloride 105 mmol/L (98-107); Creatinine, Serum 0.62 mg/dL (0.55-1.02); EST Glomerular Filtration Rate 105 mL/min (>60); Est Glom Filt Rate - Afr Amer 127 mL/min (>60); Glucose 210 mg/dL (74-106); Potassium 4.5 mmol/L (3.5-5.1); Sodium Level 138 mmol/L (136-145)
== END ==
PROVIDERS: PCP Internal Medicine; Referring Provider Internal Medicine; Visit Provider Internal Medicine
DX: E11.65 Type 2 diabetes mellitus with hyperglycemia (principal); R05 Cough; Z79.4 Long term (current) use of insulin
CPT/HCPCS: 36415; 71046; 80048; 82043; 82570; 85025

== ENCOUNTER → 2021-03-31 10:59 | Outpatient (CLI) | payer BC, SELFPAY ==
[2021-03-31 14:53] LABS: Probe Check PASS; Specimen Processing Control PASS
== END ==
PROVIDERS: PCP Internal Medicine; Referring Provider Nurse Practitioner Family; Visit Provider Nurse Practitioner Family
DX: U07.1 COVID-19 (principal); Z20.822 Contact with and (suspected) exposure to COVID-19; J06.9 Acute upper respiratory infection, unspecified; E11.65 Type 2 diabetes mellitus with hyperglycemia; Z79.4 Long term (current) use of insulin
CPT/HCPCS: 87635; U0005; U0003

== ENCOUNTER 2021-04-02 12:25 | Outpatient (CLI) | payer BC, SELFPAY ==
[2021-04-02 12:52] VITALS: BP 145/56; PULSE 85; RESP 16; TEMP 36.5; O2SAT 98; BMI 36.6
[2021-04-02] MEDS: 0.9% Saline Lock 10 ML Syringe IV (12:55)
[2021-04-02 13:32] VITALS: BP 136/57; PULSE 78; RESP 16; TEMP 36.7; O2SAT 99
[2021-04-02 14:32] VITALS: BP 145/56; PULSE 79; RESP 16; TEMP 36.6; O2SAT 97
== END 2021-04-02 14:32 | disposition home or self-care (01) ==
LOC: MS3OUT 12:25 → MS3 12:26
PROVIDERS: PCP Internal Medicine; Referring Provider Nurse Practitioner Adult Health; Visit Provider Nurse Practitioner Adult Health
DX: Z23 Encounter for immunization (principal); U07.1 COVID-19
CPT/HCPCS: J7050; M0243; A4216; Q0244

== ENCOUNTER 2021-07-12 11:07 | Outpatient (CLI) | payer BC, SELFPAY | END 2021-07-12 23:59 | disposition short-term general hospital (02) | LOC: LABSPEC 11:08 | PROVIDERS: PCP Internal Medicine; Referring Provider Physician Assistant; Visit Provider Physician Assistant | DX: Z20.822 Contact with and (suspected) exposure to COVID-19 (principal); R51.9 Headache, unspecified | CPT/HCPCS: 87635; U0003; U0005 ==

== ENCOUNTER 2021-08-11 07:00 | Outpatient (CLI) | payer BC, SELFPAY ==
--- NOTE | 2021-08-11 07:03 | BI_ITS ---
MAMMOGRAPHY - BILATERAL SCREENING REASON FOR EXAM: Female, 61 years old. Routine annual screening examination. PERTINENT HISTORY: Sister with breast cancer. TECHNIQUE: Digital bilateral breast zachary (3D mammographic acquisition) in the CC and MLO projections. 2-D mediolateral oblique (MLO) and craniocaudad (CC) views of both breasts were obtained. CAD: Full Field Digital Mammography with Computer Added Detection was performed. COMPARISON: Comparison is made with prior study discussed 05/23/2019 and 02/12/2018. FINDINGS: Breast Composition: There are scattered areas of fibroglandular density. I suspect a 7.9 mm x 8 mm slightly irregular nodule in the slightly upper central portion of the left breast. Correlation with ultrasound is recommended. Stable scattered bilateral calcifications. Stable benign-appearing bilateral axillary lymph nodes. No other significant abnormalities are identified. BI/SCRN MAMM (CAD)W/ZACHARY BILAT IMPRESSION: I suspect a 7.9 mm x 8 mm slightly irregular nodule in the slightly upper central portion of the left breast. Correlation with ultrasound is recommended. ASSESSMENT CATEGORY: BIRADS Category 0: Incomplete. Need additional imaging evaluation. A letter regarding these results will be sent to the patient by the facility within 30 days. Approximately 10% of breast cancers are not detected by mammography. A normal mammogram should not delay biopsy of a clinically suspicious abnormality. [id number] Electronically Signed: Chris Villalpando MD at 8:47 EST ,
== END 2021-08-11 23:59 | disposition home or self-care (01) ==
LOC: OPBI 07:02
PROVIDERS: PCP Internal Medicine; Referring Provider Internal Medicine; Visit Provider Internal Medicine
DX: Z12.31 Encounter for screening mammogram for malignant neoplasm of breast (principal)
CPT/HCPCS: 77063; 77067

== ENCOUNTER 2021-08-16 10:46 | Outpatient (CLI) | payer BC, SELFPAY ==
--- NOTE | 2021-08-16 10:48 | US_ITS ---
STUDY: ULTRASOUND BREAST - LEFT REASON FOR EXAM: Female, 61 years old. Abnormal screening mammogram. TECHNIQUE: Axial and longitudinal images of the LEFT breast were performed with a high resolution ultrasound transducer. # OF IMAGES: 45 COMPARISON: Comparison is made with prior examination dated 08/11/2021. FINDINGS: LEFT Breast: The mammographic abnormality corresponds to a 7 mm x 7 mm x 4 mm hypoechoic nodule at the 1 o''clock position of the breast at 1 cm from the nipple. Biopsy is recommended. Dilated retroareolar ducts. US/Breast Limited Unilateral IMPRESSION: 7 mm x 7 mm x 4 mm hypoechoic nodule at the 1 o''clock position of the breast at 1 cm from the nipple. Biopsy recommended. ASSESSMENT CATEGORY: BIRADS Category 4: Suspicious - Biopsy Should Be Considered. A letter regarding these results will be sent to the patient by the facility within 30 days. Electronically Signed: Chris Villalpando MD at 15:26 EST ,
== END 2021-08-16 23:59 | disposition home or self-care (01) ==
LOC: OPUS 10:47
PROVIDERS: PCP Internal Medicine; Referring Provider Internal Medicine; Visit Provider Internal Medicine
DX: N63.20 Unspecified lump in the left breast, unspecified quadrant (principal); R92.2 Inconclusive mammogram
CPT/HCPCS: 76642

== ENCOUNTER 2021-08-25 13:41 | Outpatient (CLI) | payer BC, SELFPAY ==
--- NOTE | 2021-08-25 14:40 | NEURO ---
NCS and/or EMG Patient Report Ordering Doctor: Clover Michelle DATE OF SERVICE: 08/25/21 Kimberley presents for electrodiagnostic testing of the upper limbs. She reports numbness and tingling in the hands, worse on the right side. Electrodiagnostic findings: Right median motor nerve demonstrates normal distal latency, amplitude and conduction velocity. Left median motor nerve demonstrates normal distal latency and amplitude with borderline reduced conduction velocity. Normal ulnar motor response bilaterally, including conduction across the elbow. Normal median and ulnar F waves. Borderline prolonged median sensory latency at the wrist. Normal ulnar and radial sensory responses. On needle EMG, all muscles tested in the upper limbs showed no evidence of denervation with normal motor action potentials. Electrodiagnostic impression: This is an abnormal study upper limbs 1. Electrodiagnostic findings demonstrate bilateral median mononeuropathy. This is consistent with a mild bilateral carpal tunnel syndrome. 2. No electrodiagnostic evidence is noted for ulnar neuropathy, including cubital tunnel syndrome. 3. No electrodiagnostic evidence is noted for cervical radiculopathy
== END 2021-08-25 23:59 | disposition home or self-care (01) ==
PROVIDERS: PCP Internal Medicine; Referring Provider Physician Assistant; Visit Provider Physician Assistant
DX: M79.601 Pain in right arm (principal); M79.641 Pain in right hand; M79.642 Pain in left hand; R20.0 Anesthesia of skin; R20.2 Paresthesia of skin
CPT/HCPCS: 95886; 95913

== ENCOUNTER 2021-09-01 07:51 | Outpatient (CLI) | payer BC, SELFPAY ==
--- NOTE | 2021-09-01 07:54 | US_ITS ---
STUDY: ULTRASOUND BREAST - LEFT REASON FOR EXAM: Female, 61 years old. Ultrasound guided left breast biopsy. TECHNIQUE: Axial and longitudinal images of the LEFT breast were performed with a high resolution ultrasound transducer. # OF IMAGES: 39 COMPARISON: Comparison is made with prior sonogram dated 08/16/2021. FINDINGS: LEFT Breast: Under direct sonographic guidance, the surgeon performed 3 core biopsies of the 7 mm x 7 mm x 4 mm hypodense nodule at the 1 o''clock position of the breast at 1 cm from nipple. US/US Breast Biopsy 1st Lesion IMPRESSION: Successful ultrasound-guided core biopsy. ASSESSMENT CATEGORY: BIRADS Category 2: Benign. A letter regarding these results will be sent to the patient by the facility within 30 days. Electronically Signed: Chris Villalpando MD at 8:29 EST ,
--- NOTE | 2021-09-01 08:30 | BRBX_PTH ---
PATIENT: ROSIO ELDRIDGE LOC: [facility] U#:[id number] AGE/SX: 61/F ROOM: RE09/01/[address]: Dr. Pennie Duarte MD : 1960 BED: DIS: 09/01/2021 SPEC #: [id number] RECD: 09/01/21 09:04 STATUS: MADIE ANT #: [id number] CHRISTAL: 09/01/21 08:[address]: Pennie Duarte DEPT: SURGICAL PATHOLOGY RECD BY: Sera Bloom ENTERED: 09/01/21 11:00 SP TYPE: BREAST BX OTHR DR: Dr. Sharda Anderson MD Tissues: Left breast, NOS Procedures: Surgery Specimen Level IV HEADER OPERATION: Ultrasound-guided left breast biopsy PRE-OP DIAGNOSIS: Left breast nodule 7 mm TISSUE SUBMITTED: Left breast nodule 7 mm, 1 o?clock, 1 cm from nipple ISCHEMIC TIME: 1 minute FIXATION TIME: 11 hours MICROSCOPIC DIAGNOSIS Left breast nodule, 1 o?clock, 1 cm from nipple, ultrasound-guided core biopsy: Fibrocystic changes, minimal adenosis and intraductal hyperplasia with minimal atypia. Negative for malignancy. See comment. JENNIFER:maci 09/02/2021 COMMENT Correlation with clinical, radiologic findings and appropriate follow up are necessary. Case has been reviewed in consultation with Dr. Serrato who concurs with the above diagnosis. IDC:AM MICROSCOPIC DESCRIPTION Slides are reviewed. GROSS DESCRIPTION Received in fixative is one container labeled with the patient's name and designated left breast. The specimen consists of multiple elongated fragments of river-yellow fibroadipose tissue that in aggregate measure 1.5 x 1.5 x 0.1 cm. The entire specimen is submitted in one cassette. / JENNIFER:maci 09/01/2021 TC:5 CPT: 95637
--- NOTE | 2021-09-01 08:50 | OP.PCM_ITS ---
Report of Operation Date of Procedure: 09/01/21 Surgeon: Pennie Duarte Type of Anesthesia: Local Specimen's removed: 1. Left breast mass 1:00 1 cm from the nipple Estimated Blood Loss (mL): minimal Description of Procedure: Procedure: ultrasound-guided core biopsy Indications: 61 year-old female with hypoechoic nodule at 1:00 in the left breast 1 centimeters from the nipple. Risk benefits were discussed the patient and she elected to proceed with ultrasound guided core biopsy with clip placement Description of procedure: Patient was brought into the ultrasound room in the left breast was marked. A timeout was completed verifying correct patient, procedure, site, specially, prior to beginning procedure. The left breast was prepped and draped in usual sterile fashion and using local anesthesia was o btained with 1% lidocaine with epi. The lesion was located with the ultrasound. Small incision was made with 11 blade to introduced the mammotome through the skin. Under ultrasound guidance multiple core samples were obtained using then 13-gauge mammotome and sent in formalin for pathology. The mammotome mammostar clip was then deployed into the biopsy cavity under ultrasound guidance and a pi cture was taken. Upon completion procedure hemostasis was obtained and a Steri- Strip and OpSite were placed. Patient was then taken to the mammography suite for clip verification. The clip was verified. The patient tolerated the procedure well and was discharged from the breast imaging department good condition. Complications none
== END 2021-09-01 23:59 | disposition home or self-care (01) ==
LOC: OPUS 07:52
PROVIDERS: PCP Internal Medicine; Visit Provider Surgery
DX: N60.22 Fibroadenosis of left breast (principal); N63.21 Unspecified lump in the left breast, upper outer quadrant
CPT/HCPCS: 19081; 19083; 88305

== ENCOUNTER 2021-09-08 10:24 | Day surgery (SDC) | payer BC, SELFPAY ==
[2021-09-08 11:15] VITALS: BP 133/66; PULSE 79; RESP 18; TEMP 37.1; O2SAT 97; BMI 35.2
[2021-09-08] MEDS: Lactated Ringers 1,000 ML 15 ML IV (11:20)
[2021-09-08 11:41] LABS: Bedside Glucose 151 mg/dL (74-106)
--- NOTE | 2021-09-08 11:42 | PCM.HP.STD ---
HPI - General HPI Narrative ROSIO ELDRIDGE, is a 61 F who presents for excisional left breast biopsy due to previous left breast biopsy with minimal atypical ductal hyperplasia. Patient has had no other issues with the biopsy site did have some minor bruising which did resolve. [facility] Medical History (Updated 09/08/21 @ 11:[address] Pennie Duarte MD) Abnormal mammogram Alcohol use Chronic cough COVID-19 vaccine series completed Depression Diabetes Dietary restriction Encounter for screening for COVID-19 Exposure to COVID-19 virus Fatty liver disease, nonalcoholic Former smoker Gastric reflux High cholesterol History of echocardiogram History of IBS History of stress test Hypertension Injury of head and neck Insulin dependent diabetes mellitus Leg cramps Migraine headache Obesity Post-menopausal Shortness of breath on exertion URI (upper respiratory infection) Vaginal candidiasis Wears glasses Home Medications multivitamin with iron 1 tab PO QDAY 07/27/17 [History Last Taken Unknown] cholecalciferol (vitamin D3) 75 mcg (3,000 unit) tablet 3,000 unit PO DAILY 02/27/18 [History Last Taken Unknown] blood sugar diagnostic #100 ea 07/23/19 [Rx Last Taken Unknown] blood-glucose meter #1 ea 09/02/19 [Rx Last Taken Unknown] atorvastatin 20 mg tablet 20 mg PO QHS #90 tab 10/15/20 [Rx Last Taken Unknown] pen needle, diabetic 32 gauge x #50 ea 10/15/20 [Rx Last Taken Unknown] blood sugar diagnostic #100 ea 06/11/21 [Rx Last Taken Unknown] omeprazole 40 mg capsule,delayed release 40 mg PO DAILY #90 cap 07/06/21 [Rx Last Taken 09/08/21 08:30] arm brace #2 ea 07/28/21 [Rx Last Taken Unknown] calcium carb-D3-mag ox-zinc ox [Shamir Mag Zinc Plus D3] tab PO 09/06/21 [History Last Taken Unknown] cholecalciferol (vitamin D3) [Vitamin D3] 25 mcg PO DAILY 09/06/21 [History Last Taken Unknown] dulaglutide [Trulicity] 4.5 mg SC QWEEK 09/06/21 [History Last Taken Unknown] escitalopram oxalate [Lexapro] 10 mg PO DAILY 09/06/21 [History Last Taken Unknown] insulin glargine [Lantus Solostar U-100 Insulin] 68 unit SC QHS 09/06/21 [History Last Taken Unknown] losartan 25 mg tablet 25 mg PO DAILY #60 tab 09/07/21 [Rx Last Taken 09/08/21 08:30] metformin 500 mg tablet,extended release 24 hr 2,000 mg PO DAILY #240 tab 09/07/21 [Rx Last Taken Unknown] Allergy/AdvReac Type Severity Reaction Status Date / Time No Known Allergies Allergy Verified 09/08/21 11:14 Family History Uncle Cancer lung Father Diabetes Myocardial infarction, Onset Age: 68 Brother CVA (cerebral vascular accident) Myocardial infarction, Onset Age: 45 Hypertension Sister Breast cancer Surgical History (Updated 09/06/21 @ 15:47 by Tenisha Gomez) H/O right heart catheterization History of cholecystectomy History of nasal septoplasty Hx of colonoscopy Social History Smoking Status: Former smoker how long ago did patient quit smokin alcohol intake: never details: social substance use type: does not use caffeine: Yes what type of physical activity do you participate in: walking frequency: 5-6 times per week seatbelt use: always do you feel safe at home: Yes additional social history: Cedric- Fought Signs Patient works at [employer] Vital Signs Vital Signs Vital Signs: 09/08/21 11:15 Temperature 98.8 F Temperature Source Temporal Pulse Rate 79 Respiratory Rate 18 Respiratory Pattern Normal Blood Pressure 133/66 H Blood Pressure Mean 88 Blood Pressure Source Monitor Blood Pressure Position Semi-Fowlers Blood Pressure Location Left Arm Pulse Ox 97 Oxygen Delivery Method Room Air Weight Weight: 211 lb 10.3 oz Body Mass Index (BMI) 35.2 Physical Exam Const oriented x3 and no apparent distress Chest Chest Narrative: Left breast resolving ecchymosis at previous biopsy site, biopsy site healing well no signs of infection. Resp normal respiratory effort Cardio regular rate GI soft to palpation and non-tender Inspection: Negative for abdominal distention Results Lab / Micro Data Labs: Laboratory Results - last 24 hr 09/08/21 11:08: POC Glucose 151 H Assessment & Plan Assessment/Plan (1) Atypical ductal hyperplasia of left breast: PLAN: We will plan for excisional biopsy with ultrasound guided needle localization of the left breast due to biopsy results of minimal atypical ductal hyperplasia seen. Discussed procedure with the patient and her . The risks not limited to bleeding, infection, need for further surgery, and anesthesia. Patient no further question this time. Pennie Duarte M.D. Pager: [phone] [facility] [address] [place] [address] [address] [place] [address] Office: [phone]
[2021-09-08] MEDS: Cefazolin 2 GM in 0.9% Normal Saline 100 ML IV (11:54)
--- NOTE | 2021-09-08 12:41 | BREAST_PTH ---
PATIENT: ROSIO ELDRIDGE LOC: [facility] [place] U#:[id number] AGE/SX: 61/F ROOM: RE09/08/[address]: Dr. Pennie Duarte MD : 1960 BED: DIS: 09/08/2021 SPEC #: [id number] RECD: 09/08/21 12:49 STATUS: MADIE ANT #: [id number] CHRISTAL: 09/08/21 12:[address]: Pennie Duarte DEPT: SURGICAL PATHOLOGY RECD BY: Bryanna Altamirano ENTERED: 09/08/21 13:05 SP TYPE: BREAST OTHR DR: Dr. Sharda Anderson MD Tissues: Right breast, NOS Procedures: Surgery Specimen Level V HEADER OPERATION: Left breast lumpectomy ultrasound-guided wire localization PRE-OP DIAGNOSIS: Atypical ductal hyperplasia of left breast TISSUE SUBMITTED: Left breast lumpectomy, long stitch ? lateral, short stitch - superior MICROSCOPIC DIAGNOSIS Left breast, lumpectomy with needle localization: Fibrocystic changes and focal intraductal hyperplasia with minimal atypia. Intraductal papilloma. Changes consistent with previous biopsy site. Negative for malignancy. SJ:maci 09/13/2021 COMMENT Please make reference to previous specimen ([id number]) left breast nodule, 1 o?clock, 1 cm from nipple, ultrasound-guided core biopsy with diagnosis of ?fibrocystic changes, minimal adenosis and intraductal hyperplasia with minimal atypia.? Case has been reviewed in consultation with Dr. Serrato who concurs with the above diagnosis. IDC:AM MICROSCOPIC DESCRIPTION Slides are reviewed. GROSS DESCRIPTION Received fresh and postfixed in formalin is one container labeled with the patient's name and designated left breast lumpectomy. The specimen consists of a piece of fibroadipose tissue with needle localization measuring 4.5 x 3.5 x 2 cm. The specimen is oriented by sutures as follows: long stitch - lateral, short stitch - superior. The specimen is inked as follows: anterior - yellow, posterior - black, superior - blue, inferior - green, medial - red and lateral - orange. Serial sections do not reveal nay mass lesion. The entire specimen is submitted in nine cassettes. Cassette 1 contains the most lateral portion and cassette 9 contains the most medial portion. Sections are submitted after additional fixation. / SJ:rg 09/09/2021 TC:5 CPT: 80126
--- NOTE | 2021-09-08 12:44 | BI_ITS ---
SURGICAL BREAST SPECIMEN RADIOGRAPH CLINICAL: Document presence of tissue clip marker in biopsy specimen. FINDINGS: Specimen shows presence of tissue clip marker. Electronically Signed: Chris Villalpando MD at 12:57 EST , BI/Breast Biopsy Specimen
--- NOTE | 2021-09-08 12:44 | PCM.OPRPT ---
Report of Operation Date of Procedure: 09/08/21 Pre-Operative Diagnosis: Left breast atypical ductal hyperplasia Post-Operative Diagnosis: Same Surgery/Procedure Performed:: Ultrasound-guided wire localization left lumpectomy Surgeon: Pennie Duarte dressed poultry grader: Lina He Type of Anesthesia: General/Supplemental Anesthesiologist: Umer Figueroa Special Medications: Ancef 2 g IV x1 Specimen's removed: Left lumpectomy Estimated Blood Loss (mL): < 10 cc Description of Procedure: Patient was placed supine on operating table. A timeout was completed verifying correct patient, procedure, site, positioning, special equipment prior beginning procedure. General anesthesia was induced. Left breast prepped and draped in usual sterile fashion. Ultrasound was used to place a Kopan's needle near the clip. Curvilinear incision was planned overlying the previous biopsy site. Incision made 15 blade scalpel deepened with electrocautery. The wire was brought into the incision. 3-0 silk suture was used to secure the wire and used for traction. The previous biopsy site was excised with electrocautery making sure to include the entire wire as well as a previous clip. Hemostasis was assured with electrocautery. Specimen was sent to x-ray and then tired needle as well as the clip were verified in the specimen. Specimen was then sent to pathology. Cavity was irrigated with sterile water. Incision was closed with subdermal interrupted sutures of 3-0 Vicryl and skin was closed with a running 4-0 Monocryl. Steri-Strips and OpSite were placed. Patient was extubated. Surgical bra was also placed. Patient was taken to the PACU in stable condition. Complications none
--- NOTE | 2021-09-08 12:49 | EX.PCM.DISCH ---
Discharge Instructions Diet Discharge Diet: No restrictions Activity Discharge Activity: May Not Drive (for 2-3 days or while taking narcotic pain meds.) May shower in (days): 1 Lifting Restrictions: 10 pounds for 1 week. Dressing / Incision Call your doctor if your incision/area has: Continuous Slow Oozing, Sudden Increased Bleeding, Increased Pain/ Swelling and Increased Redness Call your doctor if you observe: Fever of 101 or Higher Suture Line Care: Avoid Pulling/Pushing and Avoid Pinching/Bending Remove Dressing in: 1 day Additional Dressing/Incision Instructions:: Remove bulky dressing tomorrow. May leave any op-site dressing for 3 days. Okay to remove Steri-Strips from the breast incision in 7 to 10 days from surgery. Follow Up Care Please Follow Up With: Pennie Duarte MD When: Please call [phone] for an appointment to be seen in 2 week. Test Results: Will call with pathology results when available. Discharge Plan Admission Attending Provider: Pennie Duarte Primary Care Provider: Sharda Anderson Discharge Orders/Prescriptions Prescriptions: New oxycodone-acetaminophen 5-325 mg tablet 1 tab PO Q6H PRN (Reason: pain) 2 Days Qty: 3 RF: 0 Continued multivitamin with iron tablet 1 tab PO QDAY RF: 0 cholecalciferol (vitamin D3) 3,000 unit tablet 3,000 unit tablet 3,000 unit PO DAILY RF: 0 (DME) Wrist Brace Misc See Rx Instructions .ROUTE .MEDSUPPLY Qty: 2 RF: 0 cholecalciferol (vitamin D3) [Vitamin D3] 25 mcg (1,000 unit) Tablet,Chewable 25 mcg PO DAILY RF: 0 Shamir Mag Zinc Plus D3 333 mg-133 unit -133 mg-5 mg Tablet PO RF: 0 escitalopram oxalate [Lexapro] 10 mg tablet 10 mg PO DAILY RF: 0 Lantus Solostar U-100 Insulin 100 unit/mL (3 mL) insulin pen 68 unit SC QHS RF: 0 Trulicity 4.5 mg/0.5 mL pen injector 4.5 mg SC QWEEK RF: 0 (DME) Accu-Chek Sharda Plus test strp Strip See Rx Instructions .ROUTE .MEDSUPPLY Qty: 100 RF: 3 (DME) blood-glucose meter [Accu-Chek Sharda Plus Meter] Misc See Rx Instructions .ROUTE .MEDSUPPLY Qty: 1 RF: 0 atorvastatin 20 mg tablet 20 mg PO QHS Qty: 90 RF: 3 (DME) pen needle, diabetic [ReliOn Pen [place]] 32 gauge x 5/32 needle See Rx Instructions .ROUTE .MEDSUPPLY Qty: 50 RF: 3 (DME) Accu-Chek Sharda Plus test strp Strip See Rx Instructions .ROUTE .MEDSUPPLY Qty: 100 RF: 12 omeprazole 40 mg capsule,delayed release(DR/EC) 40 mg PO DAILY Qty: 90 RF: 3 metformin 500 mg tablet extended release 24 hr 2,000 mg PO DAILY Qty: 240 RF: 0 losartan 25 mg tablet 25 mg PO DAILY Qty: 60 RF: 0 Referrals / Follow Up: Sharda Anderson MD [Primary Care Provider] - Disposition Disposition (needs filled in before D/C Order can be placed): Home, Self Care
[2021-09-08 13:04] VITALS: BP 121/64; BP 133/66; PULSE 95; RESP 17; TEMP 36.3; O2SAT 90
[2021-09-08 13:15] VITALS: BP 128/71; BP 133/66; PULSE 96; RESP 16; O2SAT 95
[2021-09-08 13:30] VITALS: BP 133/66; BP 138/73; PULSE 93; RESP 15; O2SAT 97
[2021-09-08 13:33] VITALS: BP 133/66; BP 134/72; PULSE 91; RESP 16; TEMP 36.5; O2SAT 92
[2021-09-08] MEDS: oxyCODONE 5 MG Tablet PO (13:58)
[2021-09-08] MEDS: Acetaminophen 325 MG Tablet PO (13:58)
[2021-09-08 14:28] VITALS: BP 133/66; BP 138/65; PULSE 84; RESP 16; TEMP 36.3; O2SAT 94
== END 2021-09-08 23:59 | disposition home or self-care (01) ==
LOC: SDC 10:27 → AC 10:28
PROVIDERS: PCP Internal Medicine; Referring Provider Surgery; Visit Provider Surgery
PROC: 0HBV0ZZ Excision of Bilateral Breast, Open Approach (ICD-10-PCS; CPT 19302; principal; 2021-09-08 11:50)
DX: N60.12 Diffuse cystic mastopathy of left breast (principal); E11.9 Type 2 diabetes mellitus without complications; Z79.4 Long term (current) use of insulin; E78.00 Pure hypercholesterolemia, unspecified; I10 Essential (primary) hypertension; Z87.891 Personal history of nicotine dependence; Z80.3 Family history of malignant neoplasm of breast; F32.A Depression, unspecified; K76.0 Fatty (change of) liver, not elsewhere classified; K21.9 Gastro-esophageal reflux disease without esophagitis; Z78.0 Asymptomatic menopausal state; E66.9 Obesity, unspecified; Z79.899 Other long term (current) drug therapy; Z86.16 Personal history of COVID-19; Z68.36 Body mass index [BMI] 36.0-36.9, adult
CPT/HCPCS: 19301; 76098; 82962; 88305; 88307; J7120; J2405

== ENCOUNTER 2021-10-12 12:05 | Outpatient (RCR) | payer BC, SELFPAY | END 2021-10-30 23:59 | LOC: DC 12:05 | PROVIDERS: PCP Internal Medicine; Referring Provider Nurse Practitioner Family; Visit Provider Nurse Practitioner Family | DX: E11.9 Type 2 diabetes mellitus without complications (principal) | CPT/HCPCS: 97802 ==

== ENCOUNTER → 2021-10-27 | Outpatient (CLI) | payer BC, SELFPAY ==
[2021-10-31 15:40] LABS: HPV APTIMA, High Risk Negative (Negative)
== END | disposition home or self-care (01) ==
LOC: LABSPEC 09:54
PROVIDERS: PCP Internal Medicine; Visit Provider Nurse Practitioner Women's Health
DX: N76.0 Acute vaginitis (principal); Z78.0 Asymptomatic menopausal state
CPT/HCPCS: 87070; 87205; 87624; 88175; G0145

== ENCOUNTER → 2021-11-08 | Outpatient (CLI) | payer BC, SELFPAY ==
[2021-11-08 12:31] LABS: Absolute Lymphocyte Count 2.37 X10^3/uL (0.83-4.51); Basophil# 0.02 X10^3/uL; Basophil% 0.3 % (0-1); Eosinophil# 0.25 X10^3/uL; Eosinophils% 3.4 % (0-5); Hematocrit 39.4 % (37-47); Hemoglobin 12.2 g/dL (12.0-15.0); Lymphocyte # 2.37 X10^3/ul (0.83-4.51); Lymphocyte % 32.1 % (19-41); Mean Corpuscular Hgb 25.6 pg (27.0-32.0); Mean Corpuscular Volume 82.6 fL (81-99); Mean Platelet Vol. 11.1 fl (6.2-12.0); Monocyte# 0.74 X10^3/uL; NRBC Flagged by Analyzer 0 % (0-5); Neutrophil # 3.99 X10^3/uL (2.7-7.7); Neutrophil % 53.9 % (47-70); Platelet Count 227 K/mm3 (150-450); RBC Distribution Width SD 42.2 fl (35.1-43.9); Red Blood Count 4.77 M/mm3 (4.2-5.4); White Blood Count 7.4 K/mm3 (4.4-11.0)
[2021-11-08 12:51] LABS: AST(SGOT) 19 U/L (15-37); Alanine Aminotransfer ALT/SGPT 33 U/L (13-56); Albumin, Serum 3.5 g/dL (3.2-5.0); Alkaline Phosphatase 109 U/L (45-117); Anion Gap 7 (5-15); BUN 18 mg/dL (7-18); BUN/Creat Ratio 33.8 RATIO (10-20); Calcium,Total 8.6 mg/dL (8.5-10.1); Chloride 108 mmol/L (98-107); Cholesterol 118 mg/dL (200); Creatinine, Serum 0.53 mg/dL (0.55-1.02); EST Glomerular Filtration Rate 124 mL/min (>60); Est Glom Filt Rate - Afr Amer 150 mL/min (>60); Globulin 3.6 g/dL (2.2-4.2); Glucose 149 mg/dL (74-106); High Density Lipoprotein 40 mg/dL; Protein, Total 7.1 g/dL (6.4-8.2); Sodium Level 139 mmol/L (136-145); Thyroid Stim Hormone (TSH) 1.88 uIU/mL (0.358-3.74); Triglycerides 114 mg/dL; Very Low Density Lipoprotein 23 mg/dL (5-40)
== END | disposition home or self-care (01) ==
PROVIDERS: PCP Internal Medicine; Visit Provider Nurse Practitioner Family
DX: I10 Essential (primary) hypertension (principal); E11.65 Type 2 diabetes mellitus with hyperglycemia; Z79.4 Long term (current) use of insulin; E78.5 Hyperlipidemia, unspecified; I25.10 Atherosclerotic heart disease of native coronary artery without angina pectoris
CPT/HCPCS: 36415; 80053; 80061; 82043; 82570; 84443; 85025

== ENCOUNTER 2021-12-08 16:30 | Outpatient (RCR) | payer BC, SELFPAY | END 2021-12-30 23:59 | LOC: DC 16:30 | PROVIDERS: PCP Internal Medicine; Referring Provider Nurse Practitioner Family; Visit Provider Nurse Practitioner Family | DX: E11.9 Type 2 diabetes mellitus without complications (principal) | CPT/HCPCS: 97803 ==

== ENCOUNTER 2021-12-21 06:01 | Day surgery (SDC) | payer BC, SELFPAY ==
[2021-12-21 06:40] LABS: Bedside Glucose 126 mg/dL (74-106)
[2021-12-21 06:41] VITALS: BP 148/81; PULSE 79; RESP 16; TEMP 36.6; O2SAT 94; BMI 34.9
[2021-12-21] MEDS: Lactated Ringers 1,000 ML 15 ML IV (06:48)
--- NOTE | 2021-12-21 07:15 | PCM.HP.BLA ---
History and Physical Date of Admission: 12/21/21 [facility] [address] [place] [address] OFFICE VISIT Date of Service:? 10/04/21 MR#: [id number] Acct: [id number] Name:ROSIO MUNROE Rep #: [id number] : 1960 ? ? Provider: Dr. Tamir Nolan, DO Age/Sex:? 61/F ? ? Location: [facility] [place], [place].[facility] A Status: Signed Intake Vital Signs ? 10/04/2210:08 Height 5 ft 5 in Weight: 215 lb BMI 35.7 Intake Visit Reasons:?BL HANDS Allergies No Known Allergies Allergy (Verified 10/04/21 11:08) Medications multivitamin with iron 1 tab PO QDAY 07/27/17 [History Confirmed 10/04/21] cholecalciferol (vitamin D3) 75 mcg (3,000 unit) tablet 3,000 unit PO DAILY 02/27/18 [History Confirmed 10/04/21] blood sugar diagnostic #100 ea 07/23/19 [Rx Confirmed 10/04/21] blood-glucose meter #1 ea 09/02/19 [Rx Confirmed 10/04/21] atorvastatin 20 mg tablet 20 mg PO QHS #90 tab 10/15/20 [Rx Confirmed 10/04/21] pen needle, diabetic 32 gauge x #50 ea 10/15/20 [Rx Confirmed 10/04/21] blood sugar diagnostic #100 ea 06/11/21 [Rx Confirmed 10/04/21] omeprazole 40 mg capsule,delayed release 40 mg PO DAILY #90 cap 07/06/21 [Rx Confirmed 10/04/21] arm brace #2 ea 07/28/21 [Rx Confirmed 10/04/21] Shamir Mag Zinc Plus D3 tab PO 09/06/21 [History Confirmed 10/04/21] Lantus Solostar U-100 Insulin 68 unit SC QHS 09/06/21 [History Confirmed 10/04/21] Trulicity 4.5 mg SC QWEEK 09/06/21 [History Confirmed 10/04/21] cholecalciferol (vitamin D3) [Vitamin D3] 25 mcg PO DAILY 09/06/21 [History Confirmed 10/04/21] escitalopram oxalate [Lexapro] 10 mg PO DAILY 09/06/21 [History Confirmed 10/04/21] losartan 25 mg tablet 25 mg PO DAILY #60 tab 09/07/21 [Rx Confirmed 10/04/21] metformin 500 mg tablet,extended release 24 hr 2,000 mg PO DAILY #240 tab 09/07/21 [Rx Confirmed 10/04/21] meloxicam 15 mg tablet 15 mg PO DAILY 10/04/21 [History Confirmed 10/04/21] PFSH Medical History? Abnormal mammogram Alcohol use Chronic cough COVID-19 vaccine series completed Depression Diabetes Dietary restriction Encounter for screening for COVID-19 Exposure to COVID-19 virus Fatty liver disease, nonalcoholic Former smoker Gastric reflux High cholesterol History of echocardiogram History of IBS History of stress test Hypertension Injury of head and neck Insulin dependent diabetes mellitus Leg cramps Migraine headache Obesity Post-menopausal Shortness of breath on exertion URI (upper respiratory infection) Vaginal candidiasis Wears glasses Surgical History? H/O right heart catheterization History of cholecystectomy History of lumpectomy of left breast History of nasal septoplasty Hx of colonoscopy S/P laparoscopic cholecystectomy Family History? Uncle Cancer ?? ? lungFather Diabetes Myocardial infarction,? Onset Age: 68Brother CVA (cerebral vascular accident) Myocardial infarction,? Onset Age: 45 HypertensionSister Breast cancer Social History? Smoking Status:? Former smoker how long ago did patient quit smoking:? 1994 alcohol intake:? never details:? social substance use type:? does not use caffeine:? Yes what type of physical activity do you participate in:? walking frequency:? 5-6 times per week seatbelt use:? always do you feel safe at home:? Yes additional social history:? Cedric- Jerrod Signs Patient works at [employer] ? HPI BL HANDS Details: Parts of this documentation were recorded by a scribe, this documentation accurately reflects the service provided and the decisions made by me, Dr. Tamir Nolan, DO 10/04/21 0757. ROSIO ELDRIDGE is a 61 year old F here today for B/L pain. Pt states she has been having this pain for about 4 months. Pt states her pain is in her hand and fingers but denies numbness and tingling. Pt states she has pain in her hand and wrist in her right hand. Pt states she has some numbness and tingling in her right hand. Pt states she is taking Meloxicam which helps with the pain. Pt states she is right handed. Pt states she drops everything and has a weak domestic travel consultant. Pt states she has tension in her neck. pain in all of the digits but most of the ulnar side and is mainly in the hand. Pt states she has been wearing the braces at night for about 2 months and this helps with the pain. Pt states she has neck pain that radiates into the trap. Pt states last fall she had a staph infection in her elbow and she had to have her elbow drained. Pt states her last A1C was 8.3 but has trying to watch her diet. Ortho Exam General General: Yes no acute distress Neurologic: Yes alert and Yes oriented x3 Psychologic: Yes reasonable and appropriate Right Wrist/Hand Right Wrist: No Tinel's WRIST: 5/5 abduction no redness, erythema, or swelling Right Elbow ELBOW: No signs or? symptoms of infection Supplemental Info 08/25/2021 EMG b/l Upper ext 1.? Electrodiagnostic findings demonstrate bilateral median mononeuropathy.? This is consistent with a mild bilateral carpal tunnel syndrome. 2.? No electrodiagnostic evidence is noted for ulnar neuropathy, including cubital tunnel syndrome. 3.? No electrodiagnostic evidence is noted for cervical radiculopathy Coding Level of Care Code Off vis,new,level 3 Diagnoses Carpal tunnel syndrome, bilateral? G56.03 Assessment and Plan Assessment and Plan (1) Carpal tunnel syndrome, bilateral: ?Status:?Acute ?Plan - Dr. Tamir Nolan, DO: we did discuss treatment option of continued ice bracing anti-inflammatory and nerve glide exercises , diagnostic carpal tunnel injection to see if it relieves her pain in addition to her numbness and tingling although may be temporarily would give us a better idea of prognosis after open carpal tunnel release , or proceed with carpal tunnel release with the understanding that pain may not be completely related to carpal tunnel and may continue after surgery . Pt wishes to proceed with right carpal tunnel release and injection in left carpal tunnel with steroid. Reviewed the pre-operative plans with the patient. Risks and benefits of the procedure were fully explained, including but not limited to infection, neurovascular injury, continued pain, arthritis, stiffness, need for further surgery, re-injury, DVT, PE, general risks of anesthesia, and loss of limb or life. The patient understands all the risks and does wish to proceed with written consent.? Specifically also reviewed incisional hypersensitivity and pillar pain for months after surgery. Reviewed the pre-operative plans with the patient. Pt aware to stop Meloxicam 7 days prior to surgery. Pt aware to follow up with PCP for Ha1C recheck. Pt aware this number needs this number needs to be at or below 8 to proceed with surgery.Follow up by phone or in person after HA1C recheck to schedule, or sooner if pain, swelling, numbness or associated symptoms, or concerns develop.? All questions answered. Patient in agreement of plan. Plan Details Other Orders: ?Orders: ? Hand Min 3 Views Today M79.643 ? ? Hand Min 3 Views Today M79.643 ? ? Cerv Spine 2 or 3 Views Today M54.2 ? 10/04/21 1324 <Electronically signed by Tamir Nolan DO> Date Tamir Nolan DO Cosigner Signature: Date (if applicable) ?I have re-examined the patient. There are no clinical changes since date of exam
[2021-12-21] MEDS: Cefazolin 2 GM in 0.9% Normal Saline 100 ML IV (07:29)
[2021-12-21] MEDS: Lidocaine 1% /Epi 1:100 (20ml) 20 ML Vial (07:40)
[2021-12-21] MEDS: MethylPREDNISolone Acetate 40 MG/ML Vial IM (07:59)
[2021-12-21] MEDS: Bupivacaine Mpf 0.5% 30 ML VIAL (08:00)
[2021-12-21 08:05] VITALS: BP 117/53; BP 148/81; PULSE 82; RESP 16; TEMP 36.4; O2SAT 95
[2021-12-21 08:10] VITALS: BP 121/56; BP 148/81; PULSE 84; RESP 16; O2SAT 92
--- NOTE | 2021-12-21 08:10 | PCM.OPRPT ---
Report of Operation Date of Procedure: 12/21/21 Description of Surgical Findings:: Preoperative diagnosis; right carpal tunnel syndrome Postoperative diagnosis; same Procedure: Right open carpal tunnel release Anesthesia: Local with MAC Tourniquet time; 13 minutes 250 mm Hg Complications: None Indication for procedure; This is a 61-year-old female with long-standing symptoms consistent with carpal tunnel syndrome the patient did have electrodiagnostic evidence of this and has failed conservative treatment. Risks benefits and alternatives were reviewed including risks of bleeding infection nerve artery tissue damage need for further surgery and continued pain and symptoms, hypersensitivity to scar and Pillar pain. Procedure; The patient was met in the preoperative holding area the operative extremity was identified by both patient and physician and was marked the patient was met by anesthesia and brought back to the operating room and transferred to the operating table in the supine position. Anesthesia was started. A well-padded tourniquet was placed on the operative upper extremity. The patient was prepped and draped in the usual sterile fashion. A timeout was called to ensure the proper patient procedure and extremity were being contemplated. 0.5 percent lidocaine with epinephrine was injected into the incisional area. An Esmarch was used to exsanguinate the extremity. The tourniquet was inflated to 250 mmHg. A midline incision was made with a 15 blade scalpel between the thenar and hypothenar eminence. This was carried down through the skin and subcutaneous tissue. Marlen retractors were then used, a deep blade scalpel was used to make a deep incision in the palmar aponeurosis. The marlen retractors were then placed deep to this and the transverse carpal ligament was identified a perforation was made with a scalpel and a Littler scissors were used to complete the release of the transverse carpal ligament distally under direct visualization with the tips facing ulnarly until the perivascular fat was reached. Then turning our attention proximally using a tension slide technique the proximal extent of the transverse carpal ligament was released . There was noted to be hypertrophy of the transverse carpal ligament without other findings. The wound was thoroughly irrigated and was closed with 4-0 nylon vertical mattress stitches. Dressing was applied in the form of xeroform 4 x 4, web roll and an piedad wrap. Tourniquet was let down there is no intraoperative complications patient tolerated the procedure well and was transferred to the PACU. All counts were correct.
--- NOTE | 2021-12-21 08:11 | DCINST_ITS ---
Discharge Instructions Dressing / Incision Call your doctor if you observe: Shortness of breath and Chest pain Additional Dressing/Incision Instructions:: Ice and elevate operative extremity next 72 hours. Keep dressing on clean and dry for 48 hours then may remove and allow warm soapy water to rinse over incision but do not submerge until sutures are out. Then apply bandaid over incision and change daily. encourage finger range of motion. Not lift more than 1/2 pound. Minimize narcotic use only as needed and directed, may use OTC NSAID and Tylenol to supplement/substitute for pain control. Follow Up Care Please Follow Up With: Tamir Nolan DO When: 2 weeks Test Results: Test results from this visit will be discussed in further detail at your follow- up appointment, if applicable. Discharge Plan Admission Attending Provider: Tamir Nolan Primary Care Provider: Sharda Anderson Discharge Orders/Prescriptions Prescriptions: New oxycodone 5 mg tablet 2.5 - 5 mg PO Q4H PRN (Reason: pain) 3 Days Qty: 10 0RF No Action multivitamin with iron tablet 1 tab PO QDAY (DME) Wrist Brace Misc See Rx Instructions .ROUTE .MEDSUPPLY Qty: 2 0RF Rx Instructions: Wear nightly and throughout the day as needed metformin 500 mg tablet extended release 24 hr 2,000 mg PO DAILY Qty: 360 3RF losartan 25 mg tablet 25 mg PO DAILY Qty: 90 3RF cholecalciferol (vitamin D3) [Vitamin D3] 25 mcg (1,000 unit) Tablet,Chewable 25 mcg PO DAILY Shamir Mag Zinc Plus D3 333 mg-133 unit -133 mg-5 mg Tablet 1 tab PO DAILY escitalopram oxalate [Lexapro] 10 mg tablet 10 mg PO DAILY insulin glargine [Lantus Solostar U-100 Insulin] 100 unit/mL (3 mL) insulin pen 68 unit SC QHS Trulicity 4.5 mg/0.5 mL pen injector 4.5 mg SC QWEEK (DME) Accu-Chek Sharda Plus test strp Strip See Rx Instructions .ROUTE .MEDSUPPLY Qty: 100 3RF Rx Instructions: As directed, check daily for type 2 DM (DME) blood-glucose meter [Accu-Chek Sharda Plus Meter] Misc See Rx Instructions .ROUTE .MEDSUPPLY Qty: 1 0RF Rx Instructions: As directed (DME) Accu-Chek Sharda Plus test strp Strip See Rx Instructions .ROUTE .MEDSUPPLY Qty: 100 12RF Rx Instructions: tid omeprazole 40 mg capsule,delayed release(DR/EC) 40 mg PO DAILY Qty: 90 3RF atorvastatin 20 mg tablet 20 mg PO QHS Qty: 90 3RF Label Comments: cholesterol (DME) pen needle, diabetic 31 gauge x 5/16 needle See Rx Instructions .ROUTE .MEDSUPPLY Qty: 100 3RF Rx Instructions: As directed Referrals / Follow Up: Sharda Anderson MD [Primary Care Provider] - Disposition Disposition (needs filled in before D/C Order can be placed): Home, Self Care
[2021-12-21 08:15] VITALS: BP 112/57; BP 148/81; PULSE 82; RESP 15; O2SAT 93
[2021-12-21 08:20] VITALS: BP 116/59; BP 148/81; PULSE 81; RESP 15; TEMP 36.6; O2SAT 92
[2021-12-21 09:12] VITALS: BP 133/63; BP 148/81; PULSE 80; RESP 16; TEMP 36.1; O2SAT 94
--- NOTE | 2021-12-21 09:16 | SUR.PHASEII ---
bruise and swelling noted to iv site. site was held over 5 min when iv was dc'd. ice applied to hand. instructed pt to apply ice for 20 min on and 20 min off today. pt verbalized understanding.
== END 2021-12-21 09:19 | disposition home or self-care (01) ==
LOC: SDC 06:02 → AC 06:05
PROVIDERS: PCP Internal Medicine; Referring Provider Orthopaedic Surgery; Visit Provider Orthopaedic Surgery
PROC: (CPT 64721; principal; 2021-12-21 07:15)
DX: G56.03 Carpal tunnel syndrome, bilateral upper limbs (principal); G58.9 Mononeuropathy, unspecified; E11.9 Type 2 diabetes mellitus without complications; I10 Essential (primary) hypertension; E66.9 Obesity, unspecified; Z68.35 Body mass index [BMI] 35.0-35.9, adult; Z79.4 Long term (current) use of insulin; Z79.1 Long term (current) use of non-steroidal anti-inflammatories (NSAID); Z79.899 Other long term (current) drug therapy; Z87.891 Personal history of nicotine dependence
CPT/HCPCS: 64721; 01810; 82962; J7120; J2405

== ENCOUNTER 2022-01-24 16:30 | Outpatient (RCR) | payer BC, SELFPAY | END 2022-01-24 23:59 | disposition home or self-care (01) | LOC: DC 16:30 | PROVIDERS: PCP Internal Medicine; Referring Provider Nurse Practitioner Family; Visit Provider Nurse Practitioner Family | DX: E11.9 Type 2 diabetes mellitus without complications (principal) | CPT/HCPCS: 97803 ==

== ENCOUNTER → 2022-02-07 | Outpatient (CLI) | payer BC, SELFPAY | END | disposition home or self-care (01) | PROVIDERS: PCP Internal Medicine; Referring Provider Ophthalmology; Visit Provider Ophthalmology | DX: H53.2 Diplopia (principal) | CPT/HCPCS: 36415; 82164 ==

== ENCOUNTER → 2022-02-10 | Outpatient (CLI) | payer BC, SELFPAY ==
[2022-02-10 12:28] LABS: Microalbumin,Random Urine 19.2 mg/L (NO RANGE EST.); Microalbumin:Creatinine Ratio 21.1 mg/g CRE (<30 mg/g CRE)
== END | disposition home or self-care (01) ==
LOC: LABSPEC 09:47
PROVIDERS: PCP Nurse Practitioner Family; Referring Provider Nurse Practitioner Family; Visit Provider Nurse Practitioner Family
DX: E11.9 Type 2 diabetes mellitus without complications (principal)
CPT/HCPCS: 82043; 82570

== ENCOUNTER → 2022-02-17 | Outpatient (CLI) | payer BC, SELFPAY ==
--- NOTE | 2022-02-17 16:49 | CT_ITS ---
EXAM: CT ORBITS WITH INTRAVENOUS CONTRAST CLINICAL INDICATION: DIPLOPIA TECHNIQUE: Helically acquired images were obtained of the orbits. Multiplanar reformations were reviewed. Study was performed with intravenous contrast. This CT exam was performed using one or more of the following dose reduction techniques: automated exposure control, adjustment of the mA and/or kV according to patient size, and/or use of iterative reconstruction technique. This report was created using [employer] report generation technology. CONTRAST: IV 100mL Isovue-300 COMPARISON: None. FINDINGS: ORBITS: Normal. Both globes are unremarkable. Extraocular muscles are normal. Retrobulbar fat appears unremarkable. Cavernous sinus, sella turcica and suprasellar cistern are normal. SINUSES: Normal. Clear. BONES/JOINTS: No acute fracture. SOFT TISSUES: Normal. No focal subcutaneous swelling. No discrete fluid collections. CT/Orb Sella Post Fossa Ear W/CON IMPRESSION: Normal CT of the orbits. Electronically Signed: Haider Aguilar MD at 9:00 EDT ,
[2022-02-17 17:15] LABS: CREATININE FINGERSTICK < 0.9 mg/dL (0.55-1.02); EGFR FINGERSTICK > 60.0000 mL/min (>60)
== END | disposition home or self-care (01) ==
LOC: CT 16:47
PROVIDERS: PCP Nurse Practitioner Family; Referring Provider Ophthalmology; Visit Provider Ophthalmology
DX: H53.2 Diplopia (principal)
CPT/HCPCS: 70481; Q9967

== ENCOUNTER → 2022-02-22 | Outpatient (CLI) | payer BC, SELFPAY ==
--- NOTE | 2022-02-22 13:18 | MRI_ITS ---
STUDY: BILATERAL BREAST MR WITHOUT AND WITH CONTRAST REASON FOR EXAM: Female, 61 years old. High risk. ADH of left breast. TECHNIQUE: Multi-sequence multi-echo imaging of both breasts was performed with a dedicated breast coil. T1-weighted and T2-weighted images were performed before the administration of contrast. T1-weighted images were also performed after the administration of IV 20ml Dotarem without complications. COMPARISON: Left mammogram dated 09/01/2021 and left breast ultrasound guided biopsy dated 09/01/2021. FINDINGS: RIGHT BREAST: The breast tissue is scattered fibroglandular densities with minimal background enhancement. There are no abnormal enhancing masses or areas of non-mass enhancement in the right breast. LEFT BREAST: The breast tissue is scattered fibroglandular densities with moderate background enhancement. There are no abnormal enhancing masses or areas of non-mass enhancement in the left breast. There are no enlarged or abnormal lymph nodes. There is no abnormality in the visualized regions of the chest or liver. MRI/Breast Bilateral W/O and W IMPRESSION: Moderate background enhancement in the left breast. No dominant masses or suspicious lesions in either breast. Given the history, alternating breast MRI with contrast and bilateral mammogram evaluations would be appropriate. CATEGORY: BIRADS Category 2: Benign. A letter regarding these results will be sent to the patient by the facility within 30 days. Electronically Signed: Sergio Carrasquillo, at 11:26 EDT ,
== END | disposition home or self-care (01) ==
LOC: MRI 13:18
PROVIDERS: PCP Nurse Practitioner Family; Referring Provider Surgery; Visit Provider Surgery
DX: Z12.31 Encounter for screening mammogram for malignant neoplasm of breast (principal); N60.92 Unspecified benign mammary dysplasia of left breast
CPT/HCPCS: 77049; A9575; A4216; C8908

== ENCOUNTER → 2022-03-14 | Outpatient (CLI) | payer BC, SELFPAY | END | disposition home or self-care (01) | LOC: LABSPEC 10:04 | PROVIDERS: PCP Nurse Practitioner Family; Visit Provider Physician Assistant | DX: R05.9 Cough, unspecified (principal); Z20.822 Contact with and (suspected) exposure to COVID-19 | CPT/HCPCS: 87635; U0003; U0005 ==

== ENCOUNTER 2022-08-05 14:28 | Emergency (ER) | payer BC, SELFPAY ==
[2022-08-05 14:29] VITALS: BP 181/79; PULSE 80; RESP 18; TEMP 35.9; O2SAT 95; BMI 35.4
[2022-08-05 15:34] LABS: Absolute Lymphocyte Count 3.35 X10^3/uL (0.83-4.51); Absolute Neutrophil Count 6.3 X10^3/uL (2.0-7.7); Basophil# 0.03 X10^3/uL; Basophil% 0.3 % (0-1); Eosinophil# 0.49 X10^3/uL; Eosinophils% 4.4 % (0-5); Hematocrit 40.3 % (37-47); Hemoglobin 13.4 g/dL (12.0-15.0); Lymphocyte # 3.35 X10^3/ul (0.83-4.51); Lymphocyte % 30.2 % (19-41); Mean Corp Hgb Conc 33.3 g/dL (32-36); Mean Corpuscular Hgb 27.1 pg (27.0-32.0); Mean Corpuscular Volume 81.4 fL (81-99); Mean Platelet Vol. 9.9 fl (6.2-12.0); Monocyte# 0.89 X10^3/uL; NRBC Flagged by Analyzer 0 % (0-5); Neutrophil % 56.7 % (47-70); Platelet Count 228 K/mm3 (150-450); RBC Distribution Width CV 13.9 % (11.6-14.6); RBC Distribution Width SD 40.9 fl (35.1-43.9); Red Blood Count 4.95 M/mm3 (4.2-5.4); White Blood Count 11.1 K/mm3 (4.4-11.0)
[2022-08-05 15:48] LABS: Anion Gap 10 (5-15); BUN 15 mg/dL (7-18); BUN/Creat Ratio 25.8 RATIO (10-20); Calcium,Total 9.7 mg/dL (8.5-10.1); Chloride 104 mmol/L (98-107); Creatinine, Serum 0.58 mg/dL (0.55-1.02); EST Glomerular Filtration Rate 112 mL/min (>60); Est Glom Filt Rate - Afr Amer 135 mL/min (>60); Glucose 106 mg/dL (74-106); Sodium Level 138 mmol/L (136-145)
[2022-08-05 15:50] LABS: Prothrombin Time (Protime)PT. 13.2 SECONDS (11.7-14.9)
[2022-08-05 15:51] LABS: Partial Thromboplast Time 28.6 Seconds (24.1-36.2)
--- NOTE | 2022-08-05 16:39 | CT_ITS ---
STUDY: CT BRAIN WITHOUT CONTRAST REASON FOR EXAM: Female, 62 years old. Headache RADIATION DOSAGE (If Supplied By Facility): CTDIvol = ( 47.06 ) mGy, DLP = ( 855.03 ) mGycm TECHNIQUE: Transaxial CT imaging of the brain was performed without administration of intravenous contrast material. Individualized dose optimization techniques were used for this CT. COMPARISON: No relevant priors. FINDINGS: Normal soft tissue structures. Normal calvarium. Normal size ventricles and extra-axial spaces for the patient''s age. Normal white matter tracts of the cerebral hemispheres. Normal basal ganglia and thalami. Normal brainstem. Normal cerebellum. There is no intracranial hemorrhage. There are no findings of an acute ischemic infarction. Normal visualized paranasal sinuses. CT/Brain/Head without Contrast IMPRESSION: Normal unenhanced CT scan of the brain. Electronically Signed: Leonardo Cain DO at 17:13 EST ,
[2022-08-05 16:46] VITALS: BP 140/67; PULSE 74; RESP 16; O2SAT 96
--- NOTE | 2022-08-05 16:46 | EDS_ITS ---
HPI History of Present Illness Chief Complaint: Neuro S/Sx Informant: patient Narrative Narrative: Patient was referred in here by her primary care provider. She has had some left facial pain and slight area headache for about 6 or 7 days. Not sudden onset. She describes it as an ache. Sometimes like ice pick. She has had this before with trigeminal neuralgia. She gets intermittent episodes of this. She has been tried on meds for trigeminal neuralgia before but they always make her too lethargic and sleepy. She also has years of intermittent double vision. She gets this off and on but is not having it now. She has seen ophthalmology twice. They have never been able to sort the reason. She also has unsteadiness and dizziness that have been going on for years also without any solution. She is not having new or different symptoms today. She is having a recurrence of symptoms she has had before. No fevers or chills. No trauma to her head other than hitting her head back in approximately December of this year. She is eating and drinking. She was actually able to drive herself here. No new medications. [facility] Medical History Alcohol use Chronic cough COVID-19 COVID-19 vaccine series completed Depression Diabetes Dietary restriction Fatty liver disease, nonalcoholic Former smoker Gastric reflux High cholesterol History of echocardiogram History of IBS History of stress test Hypertension Injury of head and neck Insulin dependent diabetes mellitus Leg cramps Migraine headache Obesity Post-menopausal Screening mammogram for breast cancer Shortness of breath on exertion Wears glasses Home Medications multivitamin with iron 1 tab PO QDAY 07/27/17 [History Last Taken Unknown] blood-glucose meter (Accu-Chek Sharda Plus Meter) #1 ea 09/02/19 [Rx Last Taken Unknown] arm brace (Wrist Brace) #2 ea 07/28/21 [Rx Last Taken Unknown] calcium carb 333 mg-vit D3 133 unit-mag ox 133 mg-zinc oxide 5 mg tab (Shamir Mag Zinc Plus D3) 1 tab PO DAILY 09/06/21 [History Last Taken Unknown] cholecalciferol (vitamin D3) 25 mcg (1,000 unit) chewable tablet (Vitamin D3) 25 mcg PO DAILY 09/06/21 [History Last Taken Unknown] losartan 25 mg tablet 25 mg PO DAILY #90 tabs 11/03/21 [Rx Last Taken 12/21/21] metformin 500 mg tablet,extended release 24 hr 2,000 mg PO DAILY Diabetes #360 tabs 11/03/21 [Rx Last Taken Unknown] atorvastatin 20 mg tablet 20 mg PO QHS #90 tabs 11/09/21 [Rx Last Taken Unknown] pen needle, diabetic 31 gauge x 5/16 #100 ea 11/30/21 [Rx Last Taken Unknown] blood sugar diagnostic (Accu-Chek Sharda Plus test strips) #100 ea 01/28/22 [Rx Last Taken Unknown] blood sugar diagnostic (Accu-Chek Sharda Plus test strips) #100 ea 02/24/22 [Rx Last Taken Unknown] omeprazole 40 mg capsule,delayed release 40 mg PO DAILY #90 caps 06/30/22 [Rx Last Taken Unknown] dulaglutide 4.5 mg/0.5 mL subcutaneous pen injector (Trulicity) 4.5 mg (0.5 mL) subcut QWEEK #2 mL 07/05/22 [Rx Last Taken Unknown] escitalopram oxalate 20 mg tablet 20 mg PO DAILY #30 tabs 07/22/22 [Rx Last Taken Unknown] insulin glargine 100 unit/mL (3 mL) subcutaneous pen (Lantus Solostar U-100 Insulin) 68 unit (0.68 mL) subcut QHS #15 mL 07/26/22 [Rx Last Taken Unknown] Allergy/AdvReac Type Severity Reaction Status Date / Time No Known Allergies Allergy Verified 08/05/22 14:31 Family History Uncle Cancer lung Father Diabetes Myocardial infarction, Onset Age: 68 Brother CVA (cerebral vascular accident) Myocardial infarction, Onset Age: 45 Hypertension Sister Breast cancer Surgical History H/O right heart catheterization History of carpal tunnel surgery History of cholecystectomy History of lumpectomy of left breast History of lumpectomy of left breast History of nasal septoplasty Hx of colonoscopy S/P laparoscopic cholecystectomy Social History Smoking Status: Former smoker how long ago did patient quit smokin alcohol intake: never details: social substance use type: does not use caffeine: Yes what type of physical activity do you participate in: walking frequency: 5-6 times per week seatbelt use: always do you feel safe at home: Yes additional social history: [employer] Patient works at [employer] [place] ED Constitutional Constitutional ED: Denies fever(s), subjective or sweats Eyes Eyes: Denies blurry vision, change in vision or diplopia ENT ENT ED: Reports other Details: Facial pain on the left as in history of present illness. ; Denies rhinorrhea or sore throat Cardiovascular Cardiovascular: Denies chest pain Respiratory/Chest Respiratory/Chest: Denies cough Gastrointestinal Gastrointestinal: Denies abdominal pain, nausea or vomiting Musculoskeletal Musculoskeletal: Denies arthralgias, back pain, myalgias or neck pain Integumentary Denies Abrasions or rash Neurologic Neurologic: Reports headache(s) and other Details: No peripheral numbness tingling weakness or discoordination of arms or legs. No trouble with speech or vision. ; Denies paresthesias or weakness Endocrine Endocrinology: Denies polydipsia or polyuria Hematologic/Lymphatic Hematologic/Lymphatic: Denies easy bleeding or easy bruising Allergic/Immunologic Allergic/Immunologic ED: Denies urticaria EXAM Physical Exam Narrative Exam Narrative: Patient awake alert no acute distress sitting in a well lit room. HEENT shows no facial rash negative Thomas sign. Normal strength. No tenderness over the sinuses. No nasal discharge. Negative for Chvostek's. No pain with jaw motion. Eyes shows normal full range of motion with no nystagmus or limitation. Pupils are normal. No note of photophobia. Neck shows no meningismus Lungs are clear bilaterally Heart is regular without murmur gallop or rub Abdomen is soft nontender shows no CVA or suprapubic tenderness Extremities show normal strength coordination with no edema or rashes Neurologic shows an NIH of 0. Although she has pain in her face there is no weakness. Skin shows no rash pallor or diaphoresis. Const Vital Signs: 08/05/22 14:29 08/05/22 16:46 Temperature 96.7 F L Temperature Source Temporal Pulse Rate 80 74 Respiratory Rate 18 16 Blood Pressure 181/79 H 140/67 H Blood Pressure Mean 113 91 Pulse Ox 95 96 Oxygen Delivery Method Room Air Room Air MDM MDM MDM Narrative Medical decision making narrative: My independent interpretation of the patient's CT of the head without contrast shows no acute process. I see no sign of bleeding or mass. Final reading by radiology also shows normal unenhanced CT scan of the brain. Patient CBC showed nonspecific minimal elevation white count at 11.1. Hemoglobin platelets are normal. Her coagulation studies are normal. Electrolytes are normal. Glucose and calcium are normal. Renal function is normal. I discussed options with the patient. She states she has had this before she just wanted to make sure nothing else was going on. Her trigeminal neuralgia normally last 2 to 4 weeks. She states she can just take Tylenol for it. She states everything else that she has taken makes her too sleepy to function. I think this is a reasonable option. I will will refer her to outpatient neurology and have explained that it can take a while to get in. We discussed reasons to return. I do not think this patient needs MRI or admission for this. She has had this before, her neurologic exam is normal and her studies here are normal. Lab Data Attestation: I reviewed the patient's lab results. Labs: Laboratory Results - last 24 hr 08/05/22 08/05/22 08/05/22 15:25 15:25 15:25 WBC 11.1 H RBC 4.95 Hgb 13.4 Hct 40.3 MCV 81.4 MCH 27.1 MCHC 33.3 RDW Std Deviation 40.9 RDW Coeff of Giovanny 13.9 Plt Count 228 MPV 9.9 Immature Gran % (Auto) 0.400 Neut % (Auto) 56.7 Lymph % (Auto) 30.2 Arroyo % (Auto) 8.0 Eos % (Auto) 4.4 Baso % (Auto) 0.3 Absolute Neuts (auto) 6.3 Absolute Lymphs (auto) 3.35 Nucleated RBC % 0 PT 13.2 INR 1.0 APTT 28.6 Sodium 138 Potassium 4.0 Chloride 104 Carbon Dioxide 24.0 Anion Gap 10 BUN 15 Creatinine 0.58 Estim Creat Clear Calc 90.50 Est GFR (MDRD) Af Amer 135 Est GFR (MDRD) Non-Af 112 BUN/Creatinine Ratio 25.8 H Glucose 106 Calcium 9.7 Radiography Diagnostic Testing: Clinical Impression(s) from Imaging Studies Brain CT 08/05/22 16:39 IMPRESSION: Normal unenhanced CT scan of the brain. Electronically Signed: Leonardo Cain DO at 17:13 EST Reading Location ID and State: [facility] / [place] Tel [phone], Service support , Discharge Plan Triage Chief Complaint: Neuro S/Sx ED Provider: Champ Harris Dx/Rx/DC Orders Clinical Impression: Left-sided trigeminal neuralgia Instructions: ED Trigeminal Neuralgia Prescriptions: No Action multivitamin with iron tablet 1 tab PO QDAY (DME) Wrist Brace Misc See Rx Instructions .ROUTE .MEDSUPPLY Qty: 2 0RF Rx Instructions: Wear nightly and throughout the day as needed metformin 500 mg tablet extended release 24 hr 2,000 mg PO DAILY Qty: 360 3RF losartan 25 mg tablet 25 mg PO DAILY Qty: 90 3RF cholecalciferol (vitamin D3) [Vitamin D3] 25 mcg (1,000 unit) Tablet,Chewable 25 mcg PO DAILY Shamir Mag Zinc Plus D3 333 mg-133 unit -133 mg-5 mg Tablet 1 tab PO DAILY (DME) blood-glucose meter [Accu-Chek Sharda Plus Meter] [facility] See Rx Instructions .ROUTE .MEDSUPPLY Qty: 1 0RF Rx Instructions: As directed atorvastatin 20 mg tablet 20 mg PO QHS Qty: 90 3RF Label Comments: cholesterol (DME) pen needle, diabetic 31 gauge x 5/16 needle See Rx Instructions .ROUTE .MEDSUPPLY Qty: 100 3RF Rx Instructions: As directed (DME) Accu-Chek Sharda Plus test strp Strip See Rx Instructions .ROUTE .MEDSUPPLY Qty: 100 12RF Rx Instructions: tid (DME) Accu-Chek Sharad Plus test strp Strip See Rx Instructions .ROUTE .MEDSUPPLY Qty: 100 5RF Rx Instructions: As directed, check 3-4 times daily for type 2 DM omeprazole 40 mg capsule,delayed release(DR/EC) 40 mg PO DAILY Qty: 90 3RF Trulicity 4.5 mg/0.5 mL pen injector 4.5 mg SC QWEEK Qty: 2 2RF escitalopram oxalate 20 mg tablet 20 mg PO DAILY Qty: 30 1RF insulin glargine [Lantus Solostar U-100 Insulin] 100 unit/mL (3 mL) insulin pen 68 unit SC QHS Qty: 15 3RF Primary Care Provider: Sharda Anderson Referrals: Sharda Anderson MD [Primary Care Provider] - As Needed Israel Cotter MD [Non-Staff -Ordering Privileges] - As soon as possible Disposition Disposition: Home, Self Care
[2022-08-05 17:51] VITALS: BP 126/75; PULSE 80; RESP 16; O2SAT 96; BMI 35.4
== END 2022-08-05 17:53 | disposition home or self-care (01) ==
PROVIDERS: Emergency Provider Emergency Medicine; PCP Internal Medicine; Visit Provider Emergency Medicine
DX: G50.0 Trigeminal neuralgia (principal); E11.9 Type 2 diabetes mellitus without complications; Z79.4 Long term (current) use of insulin; E78.00 Pure hypercholesterolemia, unspecified; I10 Essential (primary) hypertension; Z87.891 Personal history of nicotine dependence
CPT/HCPCS: 70450; 80048; 85025; 85610; 85730; 99284

== ENCOUNTER → 2022-09-16 | Outpatient (CLI) | payer BC, SELFPAY ==
--- NOTE | 2022-09-16 10:25 | MRI_ITS ---
STUDY: MRI BRAIN WITH AND WITHOUT CONTRAST (ATTENTION INTERNAL AUDITORY CANALS - I.A.C.''s) REASON FOR EXAM: Female, 62 years old. PT C/O DIZZINESS, DOUBLE VISION, UNSTEADY GAIT, LIGHTHEADEDNESS Trigeminal neuralgia; L occipital neuralgia; perip -- With attention to the IACs/posterior fossa TECHNIQUE: Standardized multiplanar fat and water weighted pulse sequences were obtained. ml of 18mL CLARISCAN contrast material was administered intravenously for the contrast portion of the examination. COMPARISON: Head CT dated August 05, 2022 FINDINGS: Normal bilateral temporal bones. Normal bilateral internal auditory canals. There is no demonstrated intracanalicular or cisternal vestibular schwannoma (acoustic neuroma). There is no enhancement of the bilateral VIIth or VIIIth cranial nerves. Normal bilateral cochlea, vestibules and semicircular canals. There is no visualized cerebellar pontine angle mass or cyst or abnormally enlarged vessel. No visualized abnormalities of Meckel''s cave or the cavernous sinus. Normal size of the ventricles and extra-axial spaces for the patient''s age. Normal white matter tracts of the supratentorial brain. There is no evidence for recent intracranial ischemia or other cause of cytotoxic edema on diffusion weighted imaging (DWI). Normal T2* images of the brain without demonstrated susceptibility artifact. There is no demonstrated hemosiderin stain. There are no demyelinating plagues of the supratentorial brain, brainstem or cerebellum. There are no findings suspicious for multiple sclerosis (MS). No abnormally enhancing masses or lesions or signal is seen in the brain parenchyma. There is no abnormal thickening or enhancement of the meninges or dura. No abnormal bony lesions are present. Normal bilateral basal ganglia. Normal thalami. Normal flow voids within the major intracranial circulation suggesting patency by spin echo criteria. Normal venous enhancement. There is no enhancing intra-axial or extra-axial abnormality. There is no extra-axial fluid accumulation. Normal sella turcica, pituitary gland, infundibular stalk, optic chiasm and hypothalamus. Normal tectal plate and pineal gland. Normal midbrain, nish and medulla. Normal cerebellum. Normal basal cisterns. No demonstrated orbital abnormality, within the constraints of a routine brain study. Normal visualized paranasal sinuses. Normal calvarium and skull base. Normal visualized soft tissue structures. Normal visualized upper cervical spine. MRI/Brain W/WO Contrast IMPRESSION: 1. Normal enhanced MRI of the brain. 2. Normal unenhanced and enhanced MRI of the bilateral internal auditory canals (I.A.C''s). Electronically Signed: Stefano Martinez MD at 16:05 EDT ,
--- NOTE | 2022-09-16 10:25 | MRI_ITS ---
INDICATION: Left trigeminal neuralgia. EXAMINATION: MRA Head W/O Contrast TECHNIQUE: Routine [place]/brain 3D time of flight MR angiogram protocol was performed without gadolinium. 3D reconstructions were reviewed. IV Contrast Dosage and Agent: None. COMPARISON: MRI brain examination September 16, 2022. FINDINGS: --Anterior Circulation: ICAs: No significant stenosis at the intracranial/visualized segments. ACAs: No significant stenosis at the visualized segments. ACOM: Present. MCAs: No significant stenosis at the visualized segments. --Posterior Circulation: PCOMs: Present, small. auto painter: No significant stenosis at the visualized segments. BASILAR ARTERY: No significant stenosis. VERTEBRAL ARTERIES: No significant stenosis at the intradural/visualized segments. Both posterior inferior cerebellar arteries are demonstrated umbilical. No evidence of intracranial aneurysm or vascular malformation. MRI/MRA Head ONLY without Contrast IMPRESSION: Unremarkable MRA head. Electronically Signed: Myke Braswell MD at 15:37 EDT ,
[2022-09-16 11:08] LABS: Hematocrit 41.6 % (37-47); Hemoglobin 13.1 g/dL (12.0-15.0); Mean Corp Hgb Conc 31.5 g/dL (32-36); Mean Corpuscular Hgb 26.7 pg (27.0-32.0); Mean Corpuscular Volume 84.7 fL (81-99); Platelet Count 243 K/mm3 (150-450); RBC Distribution Width CV 13.8 % (11.6-14.6); RBC Distribution Width SD 42.6 fl (35.1-43.9); Red Blood Count 4.91 M/mm3 (4.2-5.4)
[2022-09-16 11:23] LABS: Vitamin B12 597 pg/mL (211-911)
[2022-09-16 12:00] LABS: AST(SGOT) 20 U/L (15-37); Alanine Aminotransfer ALT/SGPT 36 U/L (13-56); Albumin, Serum 3.7 g/dL (3.2-5.0); Alkaline Phosphatase 137 U/L (45-117); Anion Gap 7 (5-15); BUN 19 mg/dL (7-18); BUN/Creat Ratio 32.4 RATIO (10-20); Calcium,Total 9.5 mg/dL (8.5-10.1); Chloride 106 mmol/L (98-107); Creatinine, Serum 0.59 mg/dL (0.55-1.02); EST Glomerular Filtration Rate 111 mL/min (>60); Est Glom Filt Rate - Afr Amer 134 mL/min (>60); Globulin 3.7 g/dL (2.2-4.2); Glucose 153 mg/dL (74-106); Potassium 4.4 mmol/L (3.5-5.1); Protein, Total 7.4 g/dL (6.4-8.2); Sodium Level 137 mmol/L (136-145)
[2022-09-20 15:51] LABS: Vitamin B1, Thiamine 149.1 nmol/L (66.5-200.0)
== END | disposition home or self-care (01) ==
PROVIDERS: PCP Internal Medicine; Referring Provider Psychiatry & Neurology Neurology; Visit Provider Psychiatry & Neurology Neurology
DX: G50.0 Trigeminal neuralgia (principal); H81.90 Unspecified disorder of vestibular function, unspecified ear; M54.81 Occipital neuralgia
CPT/HCPCS: 36415; 70544; 70553; 80053; 82607; 82746; 84425; 85027; A9575

== ENCOUNTER → 2022-09-29 | Outpatient (CLI) | payer BC, SELFPAY ==
--- NOTE | 2022-09-20 13:03 | RAD_ITS ---
EXAM: XR CERVICAL SPINE, 2 OR 3 VIEWS CLINICAL INDICATION: Left occipital neuralgia; neck pain TECHNIQUE: 4 views, AP, lateral, swimmer''s lateral and open-mouth odontoid. COMPARISON: None. FINDINGS: VERTEBRAE: Unremarkable. Preserved vertebral body height. No acute fracture. No spondylolisthesis. Preservation of the normal cervical lordosis. No significant facet arthropathy. DISC SPACES: Unremarkable. Disc spaces are maintained. SOFT TISSUES: Unremarkable. No prevertebral soft tissue widening. LUNG APICES: Clear. RAD/Cerv Spine 2 or 3 Views IMPRESSION: No evidence of acute fracture or spondylolisthesis. Electronically Signed: Lori Harris MD at 0:56 EDT ,
--- NOTE | 2022-09-29 16:34 | BI_ITS ---
MAMMOGRAPHY - BILATERAL SCREENING REASON FOR EXAM: Female, 62 years old. Routine annual screening examination. PERTINENT HISTORY: Sister with breast cancer. Left excisional breast biopsy. TECHNIQUE: Digital bilateral breast zachary (3D mammographic acquisition) in the CC and MLO projections. 2-D mediolateral oblique (MLO) and craniocaudad (CC) views of both breasts were obtained. CAD: Full Field Digital Mammography with Computer Added Detection was performed. COMPARISON: Comparison is made with prior study dated August 11, 2021 and March 23, 2019. FINDINGS: Breast Composition: There are scattered areas of fibroglandular density. There are no dominant masses or suspicious calcifications. The patient is status post excisional breast biopsy of a nodular density in the central that of the left breast with resultant mild architectural distortion. No other significant abnormalities are identified. BI/SCRN MAMM (CAD)W/ZACHARY BILAT IMPRESSION: Stable bilateral screening mammogram. Yearly follow-up mammogram recommended. (A) ASSESSMENT CATEGORY: BIRADS Category 2: Benign. A letter regarding these results will be sent to the patient by the facility within 30 days. Approximately 10% of breast cancers are not detected by mammography. A normal mammogram should not delay biopsy of a clinically suspicious abnormality. [id number] Electronically Signed: Chris Villalpando MD at 9:35 EDT ,
== END | disposition home or self-care (01) ==
LOC: OPBI 16:32
PROVIDERS: PCP Internal Medicine; Referring Provider Surgery; Visit Provider Surgery
DX: Z12.31 Encounter for screening mammogram for malignant neoplasm of breast (principal); M54.81 Occipital neuralgia; M54.2 Cervicalgia; Z80.3 Family history of malignant neoplasm of breast
CPT/HCPCS: 72040; 77063; 77067

== ENCOUNTER → 2023-04-12 | Outpatient (CLI) | payer BC, SELFPAY ==
--- NOTE | 2023-04-12 11:05 | MRI_ITS ---
STUDY: BILATERAL BREAST MR WITHOUT AND WITH CONTRAST REASON FOR EXAM: Female, 62 years old. History of lumpectomy on the left in 2021. Family history of breast cancer. Atypical ductal hyperplasia. TECHNIQUE: Multi-sequence multi-echo imaging of both breasts was performed with a dedicated breast coil. T1-weighted and T2-weighted images were performed before the administration of contrast. T1-weighted images were also performed after the intravenous administration of 20 ml of Clariscan contrast. COMPARISON: Bilateral mammogram dated September 30, 2019 and prior breast MRI dated February 22, 2022. FINDINGS: RIGHT BREAST: Scattered fibroglandular densities with minimal background enhancement. No abnormal enhancing masses or areas of non-mass enhancement in the right breast. LEFT BREAST: Scattered fibroglandular densities with moderate background enhancement. No abnormal enhancing masses or areas of non-mass enhancement in the left breast. No enlarged or abnormal lymph nodes. No abnormality in the visualized regions of the chest or liver. MRI/Breast Bilateral W/O and W IMPRESSION: Moderate background enhancement in the left breast unchanged from prior breast MRI study. No dominant masses or suspicious lesions in either breast. Given the history, alternating breast MRI with contrast and bilateral mammogram evaluations would be appropriate. CATEGORY: BIRADS Category 2: Benign. A letter regarding these results will be sent to the patient by the facility within 30 days. Electronically Signed: Sergio Carrasquillo MD at 15:12 EDT ,
[2023-04-12 11:31] LABS: CREATININE FINGERSTICK < 0.9 mg/dL (0.55-1.02); EGFR FINGERSTICK > 60.0000 mL/min (>60)
== END | disposition home or self-care (01) ==
LOC: MRI 10:57
PROVIDERS: PCP Nurse Practitioner Family; Referring Provider Surgery; Visit Provider Surgery
DX: N60.92 Unspecified benign mammary dysplasia of left breast (principal)
CPT/HCPCS: 77049; A9575; A4216; C8908

== ENCOUNTER → 2023-07-01 | Outpatient (CLI) | payer BC, SELFPAY ==
--- OUTSIDE RECORDS SUMMARY | 2023-07-01 08:33 | XMS RPT_ITS | CCD ---
Author Name Unknown Address Formerly [facility] [address] [place] [address] Organization [facility] Care Team Providers Care Senior Safety Support Manager Name Role Phone MIGUEL GARCIA Unavailable Unavailable MIGUEL GARCIA Unavailable Unavailable DAYSI CARVER DR Attending Unavailable DAYSI CARVER DR Primary Care Unavailable DAYSI CARVER DR Admitting Unavailable MILLA BOBO Consulting Unavailable PROVIDER, UNKNOWN Consulting Unavailable Problems Problem Classification Problem Date Documented Da te Episodic/Chronic Unclassified (1 source) Encounter for screening mammogram for malignant neoplasm of breast; Translations: [Encounter for screening mammogram for malignant neoplasm of breast] Onset: 01-18-2017 Episodic Results Test Name Value Interpretation Reference Range Facil ity Encounters Encounter Date Encounter Type Care Provider Facility Start: 03-17-2021 End: 03-17-2021 ambulatory DAYSI CARVER [facility] Start: 01-27-2017 End: 01-27-2017 Ambulatory MIGUEL Freeman [facility] Start: 01-18-2017 End: 01-18-2017 Ambulatory MIGUEL Freeman [facility] Payers Date Payer Category Payer Unknown [id number] Unknown [id number] Summary Purpose Family History No Family History Records FoundNo Family History Records Found Advance Directives No Advanced Directives Records FoundNo Advanced Directives Records Found Additional Source Comments INFORMATION SOURCE (unrecogn ized section and content) DATE CREATED AUTHOR AUTHOR'S ORGANIZ ATION 03/27/2021 [facility] FOR RECORDS PERTAINING TO PATIENTS WHO ARE OR HAVE BEEN ENROLLED IN A CHEMICAL DEPENDENCY/SUBSTANCEABUSE PROGRAM, SOME INFORMATION MAY BE OMITTED. This clinical summary was aggregated from multiple sources. Caution should be exercised in using it in the provision of clinical care. This summary normalizes information from multiple sources, and as a consequence, information in this document may materially change the coding, format and clinical context of patient data. In addition, data may be omitted in some cases. CLINICAL DECISIONS SHOULD BE BASED ON THE PRIMARY CLINICAL RECORDS. [employer] [facility]. provides no warranty or guarantee of the accuracy or completeness of information in this document.
[2023-07-01 09:17] LABS: AST(SGOT) 20 U/L (15-37); Alanine Aminotransfer ALT/SGPT 42 U/L (13-56); Albumin, Serum 3.6 g/dL (3.2-5.0); Alkaline Phosphatase 127 U/L (45-117); Anion Gap 6 (5-15); BUN 15 mg/dL (7-18); BUN/Creat Ratio 21.8 RATIO (10-20); Calcium,Total 9.4 mg/dL (8.5-10.1); Chloride 105 mmol/L (98-107); Creatinine, Serum 0.69 mg/dL (0.55-1.02); EST Glomerular Filtration Rate 92 mL/min (>60); Est Glom Filt Rate - Afr Amer 111 mL/min (>60); Globulin 3.5 g/dL (2.2-4.2); Glucose 198 mg/dL (74-106); Potassium 4.4 mmol/L (3.5-5.1); Protein, Total 7.1 g/dL (6.4-8.2); Sodium Level 136 mmol/L (136-145)
[2023-07-06 21:07] LABS: Trileptal-Oxcarbazepine 4 ug/mL (10-35)
== END | disposition home or self-care (01) ==
LOC: LAB 08:30
PROVIDERS: PCP Nurse Practitioner Family; Referring Provider Psychiatry & Neurology Neurology; Visit Provider Psychiatry & Neurology Neurology
DX: G50.0 Trigeminal neuralgia (principal)
CPT/HCPCS: 36415; 80053; 82542

== ENCOUNTER → 2023-10-17 | Outpatient (CLI) | payer BC, SELFPAY ==
--- NOTE | 2023-10-17 08:38 | BI_ITS ---
MAMMOGRAPHY - BILATERAL SCREENING REASON FOR EXAM: Female, 63 years old. Routine annual screening examination. PERTINENT HISTORY: Sister with breast cancer. Prior left excisional breast biopsy. TECHNIQUE: Digital bilateral breast zachary (3D mammographic acquisition) in the CC and MLO projections. 2-D mediolateral oblique (MLO) and craniocaudad (CC) views of both breasts were obtained. CAD: Full Field Digital Mammography with Computer Added Detection was performed. COMPARISON: Comparison is made with prior study dated September 29, 2022 and September 08, 2021. FINDINGS: Breast Composition: There are scattered areas of fibroglandular density. There are no dominant masses or suspicious calcifications. The patient is status post excisional breast biopsy of a nodular density in the central lateral portion of the left breast with mild postoperative changes. Stable bilateral scattered calcifications. No other significant abnormalities are identified. There has been no significant change since the prior study. BI/SCRN MAMM (CAD)W/ZCAHARY BILAT IMPRESSION: Stable bilateral screening mammogram. Yearly follow-up mammogram recommended. (A) ASSESSMENT CATEGORY: BIRADS Category 2: Benign. A letter regarding these results will be sent to the patient by the facility within 30 days. Approximately 10% of breast cancers are not detected by mammography. A normal mammogram should not delay biopsy of a clinically suspicious abnormality. [id number] Electronically Signed: Chris Villalpando MD at 9:49 EDT ,
== END | disposition home or self-care (01) ==
LOC: OPBI 08:36
PROVIDERS: PCP Nurse Practitioner Family; Referring Provider Surgery; Visit Provider Surgery
DX: Z12.31 Encounter for screening mammogram for malignant neoplasm of breast (principal)
CPT/HCPCS: 77063; 77067

== ENCOUNTER → 2023-10-31 | Outpatient (CLI) | payer BC, SELFPAY ==
[2023-10-31 10:06] LABS: Absolute Lymphocyte Count 2.57 X10^3/uL (0.83-4.51); Absolute Neutrophil Count 4.7 X10^3/uL (2.0-7.7); Basophil# 0.04 X10^3/uL; Basophil% 0.5 % (0-1); Eosinophil# 0.44 X10^3/uL; Eosinophils% 5.1 % (0-5); Hematocrit 40.9 % (37-47); Hemoglobin 13.6 g/dL (12.0-15.0); Lymphocyte # 2.57 X10^3/ul (0.83-4.51); Lymphocyte % 29.9 % (19-41); Mean Corp Hgb Conc 33.3 g/dL (32-36); Mean Corpuscular Volume 84.2 fL (81-99); Mean Platelet Vol. 9.8 fl (6.2-12.0); Monocyte# 0.81 X10^3/uL; Monocyte% 9.4 % (0-10); NRBC Flagged by Analyzer 0 % (0-5); Neutrophil # 4.68 X10^3/uL (2.7-7.7); Neutrophil % 54.5 % (47-70); Platelet Count 212 K/mm3 (150-450); RBC Distribution Width CV 13.3 % (11.6-14.6); RBC Distribution Width SD 40.9 fl (35.1-43.9); Red Blood Count 4.86 M/mm3 (4.2-5.4); White Blood Count 8.6 K/mm3 (4.4-11.0)
[2023-10-31 10:37] LABS: Vitamin B12 506 pg/mL (211-911); Vitamin D,25 Hydroxy 31.9 ng/mL
[2023-10-31 10:40] LABS: Microalbumin,Random Urine 23.3 mg/L (NO RANGE EST.)
[2023-10-31 10:53] LABS: ALB/GLOB Ratio 1.1 RATIO (0.9-2.4); AST(SGOT) 26 U/L (15-37); Alanine Aminotransfer ALT/SGPT 43 U/L (13-56); Albumin, Serum 3.7 g/dL (3.2-5.0); Alkaline Phosphatase 108 U/L (45-117); Anion Gap 8 (5-15); BUN 9 mg/dL (7-18); BUN/Creat Ratio 18.1 RATIO (10-20); Calcium,Total 8.9 mg/dL (8.5-10.1); Chloride 104 mmol/L (98-107); Cholesterol 110 mg/dL (200); EST Glomerular Filtration Rate 134 mL/min (>60); Est Glom Filt Rate - Afr Amer 162 mL/min (>60); Globulin 3.4 g/dL (2.2-4.2); Glucose 113 mg/dL (74-106); High Density Lipoprotein 45 mg/dL; Protein, Total 7.1 g/dL (6.4-8.2); Sodium Level 135 mmol/L (136-145); Thyroid Stim Hormone (TSH) 1.43 uIU/mL (0.358-3.74); Triglycerides 132 mg/dL; Very Low Density Lipoprotein 26 mg/dL (5-40)
== END | disposition home or self-care (01) ==
LOC: LAB 09:27
PROVIDERS: PCP Nurse Practitioner Family; Referring Provider Nurse Practitioner Family; Visit Provider Nurse Practitioner Family
DX: E11.9 Type 2 diabetes mellitus without complications (principal); E56.9 Vitamin deficiency, unspecified
CPT/HCPCS: 36415; 80053; 80061; 82043; 82306; 82607; 84443; 85025

== ENCOUNTER → 2024-06-06 | Outpatient (CLI) | payer BC, SELFPAY ==
--- NOTE | 2024-06-06 12:47 | MRI_ITS ---
STUDY: BILATERAL BREAST MR WITHOUT AND WITH CONTRAST REASON FOR EXAM: Female, 63 years old. 6 month recheck. No new complaints. Abnormal mammogram in August 2021. TECHNIQUE: Multi-sequence multi-echo imaging of both breasts was performed with a dedicated breast coil. T1-weighted and T2-weighted images were performed before the administration of contrast. T1-weighted images were also performed after the intravenous administration of 19 cc of Clariscan contrast. COMPARISON: Prior screening mammogram dated October 16, 2023, prior breast MRI with contrast dated April 12, 2023 and prior screening mammogram dated September 29, 2022. FINDINGS: RIGHT BREAST: Scattered fibroglandular densities with minimal background enhancement. No abnormal enhancing masses or areas of non-mass enhancement in the right breast. LEFT BREAST: Scattered fibroglandular densities with background enhancement is slightly more prominent than on the right and unchanged from prior breast MRI study of April 2023. No abnormal enhancing masses or areas of non-mass enhancement in the left breast. No enlarged or abnormal lymph nodes. No abnormality in the visualized regions of the chest or liver. MRI/Breast Bilateral W/O and W IMPRESSION: Stable breast MRI with contrast with slight asymmetry of background enhancement, left greater than right. No dominant suspicious masses or other abnormalities. Continuing to alternate breast MRI with contrast and screening mammogram with the appropriate follow-up surveillance. CATEGORY: BIRADS Category 2: Benign. A letter regarding these results will be sent to the patient by the facility within 30 days. Electronically Signed: Sergio Carrasquillo MD at 14:04 EST ,
[2024-06-06 13:22] LABS: CREATININE FINGERSTICK < 1.0 mg/dL (0.55-1.02)
== END | disposition home or self-care (01) ==
PROVIDERS: PCP Nurse Practitioner Family; Referring Provider Surgery; Visit Provider Surgery
DX: Z12.31 Encounter for screening mammogram for malignant neoplasm of breast (principal); N60.92 Unspecified benign mammary dysplasia of left breast
CPT/HCPCS: 77049; A9575; A4216; C8908

== ENCOUNTER → 2024-10-15 | Outpatient (CLI) | payer BC, SELFPAY ==
[2024-10-15 12:48] LABS: Absolute Lymphocyte Count 2.92 X10^3/uL (0.83-4.51); Absolute Neutrophil Count 5.1 X10^3/uL (2.0-7.7); Basophil# 0.04 X10^3/uL; Basophil% 0.4 % (0-1); Eosinophil# 0.28 X10^3/uL; Hematocrit 44.9 % (37-47); Hemoglobin 15.4 g/dL (12.0-15.0); Lymphocyte # 2.92 X10^3/ul (0.83-4.51); Lymphocyte % 31.1 % (19-41); Mean Corp Hgb Conc 34.3 g/dL (32-36); Mean Corpuscular Hgb 29.8 pg (27.0-32.0); Mean Corpuscular Volume 86.8 fL (81-99); Mean Platelet Vol. 10.3 fl (6.2-12.0); Monocyte% 10.7 % (0-10); NRBC Flagged by Analyzer 0 % (0-5); Neutrophil # 5.09 X10^3/uL (2.7-7.7); Neutrophil % 54.3 % (47-70); Platelet Count 222 K/mm3 (150-450); RBC Distribution Width CV 13.1 % (11.6-14.6); RBC Distribution Width SD 41.5 fl (35.1-43.9); Red Blood Count 5.17 M/mm3 (4.2-5.4); White Blood Count 9.4 K/mm3 (4.4-11.0)
[2024-10-15 13:59] LABS: ALB/GLOB Ratio 1.4 RATIO (0.9-2.4); AST(SGOT) 26 U/L (<=31); Alanine Aminotransfer ALT/SGPT 28 U/L (<=34); Albumin, Serum 4.3 g/dL (3.4-4.8); Alkaline Phosphatase 111 U/L (35-104); Anion Gap 14 (5-15); BUN 13 mg/dL (4-19); BUN/Creat Ratio 24.4 RATIO (10-20); Calcium,Total 10.1 mg/dL (7.6-11.0); Carbon Dioxide 19.8 mmol/L (21.0-32.0); Chloride 99 mmol/L (98-108); Cholesterol 138 mg/dL (<=200); Creatinine, Serum 0.54 mg/dL (0.70-1.20); EST Glomerular Filtration Rate 103 (>60); Glucose 89 mg/dL (70-99); High Density Lipoprotein 52 mg/dL; Potassium 3.9 mmol/L (3.3-5.1); Protein, Total 7.3 g/dL (5.9-8.4); Sodium Level 133 mmol/L (133-145); Total Bilirubin 0.66 mg/dL (0.00-1.30); Triglycerides 135 mg/dL
[2024-10-15 14:00] LABS: Low Density Lipoprotein Calc. 59 mg/dL; Very Low Density Lipoprotein 27 mg/dL (5-40); Vitamin B12 960 pg/mL (180-914); Vitamin D,25 Hydroxy 21.5 ng/mL (30-100); cholesterol:hdl ratio screen 2.67
[2024-10-15 15:13] LABS: Microalbumin,Random Urine < 12.0 mg/L (NO RANGE EST.); Microalbumin:Creatinine Ratio UNABLE TO CALCULATE mg/g CRE
== END | disposition home or self-care (01) ==
LOC: LAB 11:50
PROVIDERS: PCP Nurse Practitioner Family; Referring Provider Nurse Practitioner Family; Visit Provider Nurse Practitioner Family
DX: E11.9 Type 2 diabetes mellitus without complications (principal); E56.9 Vitamin deficiency, unspecified
CPT/HCPCS: 36415; 80053; 80061; 82043; 82306; 82570; 82607; 84443; 85025

== ENCOUNTER → 2025-02-04 | Outpatient (CLI) | payer BC, SELFPAY ==
--- NOTE | 2025-02-04 16:57 | BI_ITS ---
EXAM: SCRN MAMM (CAD)W/ZACHARY BILAT DATE: 02/04/2025 CLINICAL HISTORY: F, Age 64 y/o , SCREENING TECHNIQUE: SCRN MAMM (CAD)W/ZACHARY BILAT COMPARISON: Prior exam(s) were compared FINDINGS: TISSUE DENSITY: The breasts are heterogeneously dense, which may obscure small masses. Bilateral Breast Mammographic Findings: No suspicious masses, calcifications or other abnormalities are identified. BI/SCRN MAMM (CAD)W/ZACHARY BILAT IMPRESSION: No mammographic evidence of malignancy in either breast OVERALL FINAL ASSESSMENT BI-RADS 1: NEGATIVE. RECOMMENDATION: Routine annual follow-up in 1 Year A letter with findings and recommendations will be mailed to the patient. Reading Location: [id number]
--- NOTE | 2025-02-04 16:57 | BI_ITS ---
EXAM: SCRN MAMM (CAD)W/ZACHARY BILAT DATE: 02/04/2025 CLINICAL HISTORY: F, Age 64 y/o , SCREENING TECHNIQUE: SCRN MAMM (CAD)W/ZACHARY BILAT COMPARISON: Prior exam(s) were compared FINDINGS: TISSUE DENSITY: The breasts are heterogeneously dense, which may obscure small masses. Bilateral Breast Mammographic Findings: No suspicious masses, calcifications or other abnormalities are identified. BI/SCRN MAMM (CAD)W/ZACHARY BILAT IMPRESSION: No mammographic evidence of malignancy in either breast OVERALL FINAL ASSESSMENT BI-RADS 1: NEGATIVE. RECOMMENDATION: Routine annual follow-up in 1 Year A letter with findings and recommendations will be mailed to the patient. Reading Location: [id number]
== END | disposition home or self-care (01) ==
LOC: OPBI 02-05 07:55
PROVIDERS: PCP Nurse Practitioner Family; Referring Provider Surgery; Visit Provider Surgery
DX: Z12.31 Encounter for screening mammogram for malignant neoplasm of breast (principal)
CPT/HCPCS: 77063; 77067

== ENCOUNTER → 2025-02-27 | Outpatient (CLI) | payer BC, SELFPAY ==
--- NOTE | 2025-02-27 15:44 | BD_ITS ---
PROCEDURE: DEXA BONE DENSITY STUDY 02/27/2025 REASON FOR EXAM: F, age 64 y/o . Postmenopausal. TECHNIQUE: DEXA BONE DENSITY STUDY COMPARISON: None FINDINGS: BMD and T-SCORES Lumbar spine: 0.893 g/cm2, T-score -1.7 Levels: L1 through L4 Left femoral neck: 0.695 g/cm2, T-score -1.4 Femoral neck comparison data not recommended for monitoring change. Left total hip: 0.868 g/cm2, T-score -0.6 Right femoral neck: 0.649 g/cm2, T-score -1.8 Femoral neck comparison data not recommended for monitoring change. Right total hip: 0.834 g/cm2, T-score -0.9 The World Health Organization has defined the following categories based on bone density: Normal bone density: T-score equal to or greater than -1.0 Osteopenia: T-score between -1.0 and -2.5 Osteoporosis: T-score equal to or less than -2.5 FRAX (or Comparable) Fracture Risk Assessment: 10 Year Probability of Fracture: Major Osteoporotic Fracture: 8.7% Hip Fracture: 1.0% (Note: FRAX is not to be reported in setting of normal range bone density, osteoporosis on DEXA, known history of osteoporosis, prior osteoporotic hip or vertebral fracture, or for any patient undergoing pharmacological treatment for bone loss.) The National Osteoporosis Foundation (NOF) recommends pharmacological treatment for patients with a FRAX 10-year risk of 3% or higher for a hip fracture, or 20% or higher for a major osteoporotic fracture, to prevent osteoporosis and reduce fracture risk. The patient does meet the pharmacological treatment recommendations for prevention of osteoporosis. BD/Dexa Bone Density Study IMPRESSION: OSTEOPENIA. Recommend follow-up as clinically warranted. Reading Location: [facility]
== END | disposition home or self-care (01) ==
LOC: OPBD 15:43
PROVIDERS: PCP Nurse Practitioner Family; Referring Provider Family Medicine; Visit Provider Family Medicine
DX: Z13.820 Encounter for screening for osteoporosis (principal); Z78.0 Asymptomatic menopausal state
CPT/HCPCS: 77080

== ENCOUNTER → 2025-03-12 | Outpatient (CLI) | payer BC, SELFPAY ==
--- NOTE | 2025-03-12 10:39 | NEURO ---
NCS and/or EMG Patient Report Ordering Doctor: Aracelis Dye [facility] DATE OF SERVICE: 03/12/25 Kimberley presents with complaints of intermittent pain and weakness in the legs. Electrodiagnostic findings: Right peroneal motor nerve demonstrates normal distal latency, amplitude and conduction velocity. Left peroneal motor nerve measured at the tibialis anterior demonstrates normal distal latency, amplitude and conduction velocity. Normal tibial motor response bilaterally. Borderline prolonged sural latency bilaterally. Normal H?reflex bilaterally. F?waves are normal. Needle EMG testing was performed in the lower limbs. All muscles tested showed no evidence of denervation with normal motor unit action potentials. Electrodiagnostic Assessment: This is a normal electrodiagnostic study of the lower limbs. There is no electrodiagnostic evidence for lumbosacral radiculopathy or peripheral polyneuropathy. Multi Select Codes Neurology Neurology Interp Codes: 72796-05 Musc test done w/n test comp (interp) (2) and 14432-04 Nrv cndj test 11-12 studies (interp)
== END | disposition home or self-care (01) ==
PROVIDERS: PCP Nurse Practitioner Family; Referring Provider Family Medicine; Visit Provider Family Medicine
DX: M79.604 Pain in right leg (principal); E11.9 Type 2 diabetes mellitus without complications; M79.605 Pain in left leg
CPT/HCPCS: 95886; 95912

== ENCOUNTER → 2025-06-10 | Outpatient (CLI) | payer BC, SELFPAY ==
[2025-06-10 17:43] LABS: Hematocrit 44.1 % (37-47); Hemoglobin 14.9 g/dL (12.0-15.0); Mean Corp Hgb Conc 33.8 g/dL (32-36); Mean Corpuscular Volume 86.6 fL (81-99); Mean Platelet Vol. 10.0 fl (6.2-12.0); Platelet Count 213 K/mm3 (150-450); RBC Distribution Width CV 13.5 % (11.6-14.6); RBC Distribution Width SD 42.9 fl (35.1-43.9); Red Blood Count 5.09 M/mm3 (4.2-5.4); White Blood Count 10.8 K/mm3 (4.4-11.0)
[2025-06-10 17:51] LABS: AST(SGOT) 20 U/L (<=31); Alanine Aminotransfer ALT/SGPT 24 U/L (<=34); Albumin, Serum 4.4 g/dL (3.4-4.8); Alkaline Phosphatase 117 U/L (35-104); Anion Gap 11 (5-15); BUN 16 mg/dL (4-19); BUN/Creat Ratio 29.6 RATIO (10-20); Calcium,Total 9.9 mg/dL (7.6-11.0); Carbon Dioxide 21.1 mmol/L (21.0-32.0); Chloride 102 mmol/L (98-108); Globulin 2.7 g/dL (2.2-4.2); Glucose 109 mg/dL (70-99); Potassium 4.2 mmol/L (3.3-5.1)
[2025-06-13 14:09] LABS: Vitamin D 1,25-Dihydroxy 51.3 pg/mL (24.8-81.5)
[2025-06-17 15:08] LABS: Trileptal-Oxcarbazepine 4 ug/mL (10-35)
== END | disposition home or self-care (01) ==
LOC: MTLAB 16:33
PROVIDERS: PCP Nurse Practitioner Family; Referring Provider Psychiatry & Neurology Neurology; Visit Provider Psychiatry & Neurology Neurology
DX: E55.9 Vitamin D deficiency, unspecified (principal); G50.0 Trigeminal neuralgia
CPT/HCPCS: 36415; 80053; 82542; 82652; 85027